=== PATIENT | female | born 1960 | race Caucasian/White ===

== ENCOUNTER → 2017-05-16 15:55 | Outpatient (REF) | payer BC, SELFPAY ==
[2017-05-16 19:11] LABS: Basophils # 0.1 K/mm3 (0-0.2); Basophils % 0.6 % (0.1-2.0); Eosinophils # 0.4 K/mm3 (0.0-0.4); Eosinophils % 5.8 % (0.1-12.0); Hematocrit 36.8 % (37.0-47.0); Hemoglobin 11.3 g/dL (12.2-16.2); Lymphocytes # 2.4 K/mm3 (0.7-4.5); Lymphocytes % 32.1 K/mm3 (10-50); Mean Corpuscular HGB Conc 30.7 g/dL (31.8-35.4); Mean Corpuscular Hemoglobin 27.5 pg (27.0-31.2); Mean Corpuscular Volume 89.8 fl (81-99); Mean Platelet Volume 7.2 fl (7.4-10.4); Monocytes # 0.5 K/mm3 (0.1-1.0); Monocytes % 6.5 % (1.7-9.3); Neutrophils # 4.1 K/mm3 (1.8-7.8); Platelet Count 248 K/mm3 (142-424); Red Cell Distribution Width 15.2 % (11.5-17.5); White Blood Count 7.5 K/mm3 (4.8-10.8)
[2017-05-16 19:39] LABS: Alanine Aminotransferase 14 U/L (12-78); Albumin Level 3.5 gm/dL (3.4-5.0); Albumin/Globulin Ratio 1.1 (1.1-1.8); Alkaline Phosphatase 115 U/L (46-116); Aspartate Amino Transferase 16 U/L (15-37); Bilirubin,Total 0.3 mg/dL (0.2-1.0); Blood Urea Nitrogen 9 mg/dL (7-18); Calcium 8.6 mg/dL (8.5-10.1); Carbon Dioxide 28 mmol/L (21.0-32.0); Chloride 109 mmol/L (98-107); Creatinine,Serum 0.77 mg/dL (0.55-1.02); Estimated Glomerular Filt Rate 77 ml/min (>60); GFR (African American) 93 ML/MIN (>60); Globulin 3.2 gm/dl (1.3-3.2); Glucose 97 mg/dL (74-106); Sodium 146 mmol/L (136-145); T4 (Thyroxine) 5.1 ug/dl (4.7-13.3); Thyroid Stimulating Hormone 1.55 uIU/ml (0.358-3.740); Total Protein,Serum 6.7 gm/dL (6.4-8.2)
[2017-05-19 17:13] LABS: Vitamin D 25 Hydroxy 12.9 ng/mL (30.0-100.0)
== END ==
LOC: LAB 15:55
PROVIDERS: Visit Provider Physician Assistant
DX: G62.9 Polyneuropathy, unspecified (principal); I07.9 Rheumatic tricuspid valve disease, unspecified; M51.16 Intervertebral disc disorders with radiculopathy, lumbar region
CPT/HCPCS: 80053; 82652; 84436; 84443; 85025

== ENCOUNTER → 2017-06-14 16:11 | Outpatient (REF) | payer BC, SELFPAY ==
[2017-06-14 20:07] LABS: Amphetamine/Metha Screen,Urine Negative ng/mL (<1000); Barbiturates Screen,Urine Negative ng/mL (<200); Benzodiazepines Screen,Urine Negative ng/mL (200); Cannabinoid Screen,Urine Negative ng/mL (<50); Cocaine Screen,Urine Negative ng/g (<300); Methadone Screen,Urine Negative ng/mL (<300); Opiate Screen,Urine Negative ng/mL (<300); Phencyclidine Screen,Urine Negative ng/mL (<25)
== END ==
LOC: LAB 16:11
PROVIDERS: Visit Provider Physician Assistant
DX: N39.0 Urinary tract infection, site not specified (principal); Z79.899 Other long term (current) drug therapy
CPT/HCPCS: 80305; 87086; 87088; 87186

== ENCOUNTER → 2017-06-20 09:27 | Outpatient (CLI) | payer BC, SELFPAY ==
--- NOTE | 2017-06-20 09:51 | CA_ITS ---
PROCEDURE: 2-D M-mode and color Doppler study INDICATIONS FOR THE TEST: Chest pain COPD Heart Murmur Tobacco SmokingX Palpitations Fatigue Syncope Edema HypertensionXDiabetes Mellitus Rheumatic Fever SOB DOEXObesityXHyperlipidemia Family History HD Additional History TR TDS SECONARY TO OBESITY PATIENT INFORMATION HEIGHT: 66 WEIGHT:309 GENDER: Female B/P:120/60 2-D/M-MODE INTERPRETATION: 2-D MEASUREMENTS OBSERVED VALUES IN CMS Right Ventricular Dimension (RVDd) 1.6 Interventricular Septum (Thickness)(IVsd) 1.1 Left Ventricular Internal Dimensions(LVIDd) 5.2 Left Ventricular Posterior Wall (Thickness)(LVPWd) 1.2 Aortic Root 3.2 Aortic Cusp Separation 1.5 Left Atrial Dimensions (LAD) 3.0 2D 1. Technically difficult study because of the patient's factor and poor acoustic windows. 2. The left atrium is mildly enlarged, left ventricle is normal size, there is mild concentric left ventricular hypertrophy present, visually estimated ejection fraction 55% with no obvious regional wall motion abnormality. 3. The right atrium and right ventricle are normal size and contractility. 4. The aortic valve is minimally thickened and fibrosed. 5. The mitral and tricuspid valve are structurally normal. 6. No significant pericardial effusion noted. DOPPLER INTERROGATION: Doppler interrogation of the aortic, mitral and tricuspid valvular presence of mild mitral and tricuspid regurgitation, tricuspid and jet velocity insufficient for calculation of the right ventricular systolic pressure, tissue Doppler is indicated of raised left atrial pressure. CONCLUSION: 1. Mildly enlarged left atrium, normal left ventricular size, mild concentric left ventricular hypertrophy, visually estimated ejection fraction of 55% with no obvious regional wall motion abnormality, tissue Doppler is indicated of raised left atrial pressure. 2. Mild mitral and tricuspid regurgitation. 3. No significant pericardial effusion noted.
== END ==
PROVIDERS: Family Provider Family Medicine; PCP Physician Assistant; Visit Provider Physician Assistant
DX: I07.9 Rheumatic tricuspid valve disease, unspecified (principal)
CPT/HCPCS: 93306

== ENCOUNTER → 2017-06-22 14:37 | Outpatient (CLI) | payer BC, SELFPAY ==
[2017-06-22 17:46] LABS: Ferritin 5 ng/mL (8-388)
[2017-06-24 08:22] LABS: Iron 41 ug/dL (27-159); UIBC 352 ug/dL (131-425)
[2017-06-24 19:04] LABS: Iron Saturation 10 % (15-55); Vitamin B12 229 pg/mL (232-1245)
[2017-06-25 08:11] LABS: Hep A Ab, IgM Negative (Negative); Hepatitis B Core Antibody IgM Negative (Negative); Hepatitis B Surface Antigen Negative (Negative)
[2017-06-25 17:09] LABS: Hepatitis C Antibody 0.1 s/co ratio (0.0-0.9)
== END ==
PROVIDERS: PCP Emergency Medicine; Visit Provider Physician Assistant
DX: D64.9 Anemia, unspecified (principal); R53.83 Other fatigue; Z20.5 Contact with and (suspected) exposure to viral hepatitis; Z79.899 Other long term (current) drug therapy
CPT/HCPCS: 36415; 80074; 82607; 82728; 83550

== ENCOUNTER → 2017-07-12 15:53 | Outpatient (REF) | payer BC, SELFPAY | LOC: LAB 15:53 | PROVIDERS: Visit Provider Physician Assistant | DX: R30.9 Painful micturition, unspecified (principal) | CPT/HCPCS: 87086 ==

== ENCOUNTER 2017-08-24 17:00 | Outpatient (RCR) | payer BC, SELFPAY ==
--- NOTE | 2017-07-04 18:14 | HMH.PTOPEV ---
Rehab Outpatient Evaluation Rehab OP Evaluation Start: 07/04/17 17:10 Freq: Status: Active Protocol: Document 07/04/17 18:04 LARRYYASIR (Rec: 07/04/17 18:14 JOSE [id number]) Electronically Signed By Robert Molina PT 07/04/17 18:04 Outpatient Therapy Subjective History Subjective History This is the initial Physical Therapy evaluation for Carmita Lynn. Pt reports to PT for c/o LBP and LLE radiculopathy > RLE radiculopathy. Pt reports lumbago and sciatic pain for 10+ years. PT reports multiple MRI's, X-rays, and NCV/EMG. PT reports significant hx of bulging discs, spinal stenosis, spondylosis, anterolisthesis and nerve damage. Chief Complaint Pain Symptom Type Ache Throb Sharp Dull Stabbing Burning Numbness Tingling Shooting Symptoms Relieved By Rest/Positioning Prescription Meds Symptoms Aggravated By Sitting Standing Physical Activity Twisting Walking Current Functional Limitations Lifting Housework Desk Work/Reading Sleeping Standing Sitting Squatting Recreation Activity Walking Symptom Description Constant but Variable Level of pain today (0-10) 5 Pain scale - at its best (0-10) 3 Pain scale - at its worst (0-10) 9 Lumbopelvic Eval Posture Thoracic Spine Posture Standing Position Increased Kyphosis Lumbar Spine Posture Standing Position Flattened Decreased Lordosis Assistive device Assistive Devices None / NA Gait Observation General Gait Pattern Observation Antalgic Gait Decrease Weight Bear (L) Decrease Stride Lngth (L) Palapation tenderness bilateral thoracic spinal tenderness Yes lumbar spina
== END 2017-08-24 17:01 | disposition home or self-care (01) ==
LOC: PT 17:00
PROVIDERS: Family Provider Family Medicine; PCP Emergency Medicine; Visit Provider Emergency Medicine
DX: M51.16 Intervertebral disc disorders with radiculopathy, lumbar region (principal)
CPT/HCPCS: 97010; 97014; 97110; 97164; G0283

== ENCOUNTER → 2018-01-04 16:46 | Outpatient (REF) | payer BC, SELFPAY ==
[2018-01-04 18:29] LABS: Basophils % 0.7 % (0.1-2.0); Eosinophils # 0.3 K/mm3 (0.0-0.4); Eosinophils % 4.5 % (0.1-12.0); Hematocrit 35.6 % (37.0-47.0); Hemoglobin 11.1 g/dL (12.2-16.2); Lymphocytes % 34.3 K/mm3 (10-50); Mean Corpuscular HGB Conc 31.1 g/dL (31.8-35.4); Mean Corpuscular Hemoglobin 27.7 pg (27.0-31.2); Mean Corpuscular Volume 89.2 fl (81-99); Mean Platelet Volume 6.5 fl (7.4-10.4); Monocytes # 0.4 K/mm3 (0.1-1.0); Neutrophils # 3.1 K/mm3 (1.8-7.8); Neutrophils % 54.4 % (37.0-80.0); Platelet Count 225 K/mm3 (142-424); Red Blood Count 3.99 M/mm3 (4.20-5.40); Red Cell Distribution Width 15.9 % (11.5-17.5); White Blood Count 5.7 K/mm3 (4.8-10.8)
[2018-01-04 19:06] LABS: Alanine Aminotransferase 15 U/L (12-78); Albumin Level 3.2 gm/dL (3.4-5.0); Albumin/Globulin Ratio 0.9 (1.1-1.8); Alkaline Phosphatase 101 U/L (46-116); Anion Gap 10.3 mEq/L (5-15); Aspartate Amino Transferase 18 U/L (15-37); Bilirubin,Total 0.4 mg/dL (0.2-1.0); Blood Urea Nitrogen 6 mg/dL (7-18); Calcium 8.3 mg/dL (8.5-10.1); Carbon Dioxide 28 mmol/L (21.0-32.0); Chloride 106 mmol/L (98-107); Cholesterol 179 mg/dL (140-200); Creatinine,Serum 0.88 mg/dL (0.55-1.02); Estimated Glomerular Filt Rate 66 ml/min (>60); GFR (African American) 80 ML/MIN (>60); Globulin 3.6 gm/dl (1.3-3.2); Glucose 85 mg/dL (74-106); HDL Cholesterol 36 mg/dL (29-89); LDL Cholesterol 107 mg/dL (0-130); Potassium 4.3 mmoL/L (3.5-5.1); Sodium 140 mmol/L (136-145); T4 (Thyroxine) 6.2 ug/dl (4.7-13.3); Thyroid Stimulating Hormone 2.47 uIU/ml (0.358-3.740); Total Protein,Serum 6.8 gm/dL (6.4-8.2); Triglycerides 181 mg/dL (30-200); VLDL Cholesterol 36 mg/dL (0-40)
[2018-01-06 20:26] LABS: Vitamin B12 357 pg/mL (232-1245)
== END ==
LOC: LAB 16:46
PROVIDERS: Visit Provider Physician Assistant
DX: R60.9 Edema, unspecified (principal); M79.605 Pain in left leg; E55.9 Vitamin D deficiency, unspecified
CPT/HCPCS: 80053; 80061; 82607; 82652; 84436; 84443; 85025

== ENCOUNTER → 2018-01-05 15:00 | Outpatient (CLI) | payer BC, SELFPAY ==
--- NOTE | 2018-01-05 15:02 | NVE_ITS ---
Venous Exam Indications: 729.5 Pain in limb. IMPRESSIONS 1. There is no evidence of significant Reflux. 2. No evidence of deep or superficial vein thrombosis involving the left lower extremity 3. Pt is very tender and shieding through out the exam. Very difficult exam. Left lower extremity venous duplex evaluation. Doppler flow study including spectral analysis, color and rodríguez scale imaging. Location: Vascular laboratory. Patient status: Outpatient. Tables: Venous flow and imaging: + +-------+ + Location Overall Flow properties + +-------+ + Left common femoral Patent Normal phasicity; spontaneous; normal augmentation; compressible + +-------+ + Left saphenofemoral junction Patent Compressible + +-------+ + Left profunda femoral Patent Compressible + +-------+ + Left femoral Patent Normal phasicity; spontaneous; normal augmentation; compressible + +-------+ + Left greater saphenous Patent Normal phasicity; spontaneous; normal augmentation; compressible + +-------+ + Left popliteal Patent Normal phasicity; spontaneous; normal augmentation; compressible + +-------+ + Left posterior tibial Patent Compressible + +-------+ + Left peroneal Patent Compressible + +-------+ + Left gastrocnemius Patent Compressible + +-------+ + Left soleal Patent Compressible + +-------+ + (Report amended ) Electronically signed by: Colin Lu [id number]
== END ==
PROVIDERS: Family Provider Family Medicine; PCP Emergency Medicine; Visit Provider Physician Assistant
DX: M79.605 Pain in left leg (principal); R60.9 Edema, unspecified
CPT/HCPCS: 93971

== ENCOUNTER → 2019-11-14 17:56 | Outpatient (CLI) | payer BC, SELFPAY | PROVIDERS: Visit Provider Physician Assistant | DX: N39.0 Urinary tract infection, site not specified (principal) | CPT/HCPCS: 87086; 87088; 87186 ==

== ENCOUNTER → 2019-11-30 12:29 | Outpatient (CLI) | payer BC, SELFPAY ==
--- NOTE | 2019-11-30 12:40 | XR_ITS ---
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 Nothing definitely acute.. The heart is normal in size. Pulmonary vascularity appears mildly increased upper normal but with no pleural effusion.. Nayana and mediastinal structures appear normal. No pneumothorax. Chest wall unremarkable. Mild degenerative changes T-spine 5.4 cm round density with associated subtle postsurgical changes at GE junction region.. Possibly reflects hiatal hernia with hiatal hernia surgery or gastric surgery history.. More extensive surgical clips are seen proximal stomach and GE junction on August 2014 lumbar spine series. IMPRESSION: Lungs clear with no definitive acute cardiopulmonary findings. Would only note upper normal to perhaps borderline increased pulmonary vascularity. Incidental round density region of GE junction with postsurgical changes about this area. Basically stable stable since 2014 lumbar series (Likely reflects hiatal hernia with possible hiatal hernia repair or gastric surgery also involving this region) Dictated by: Colin Lu MD 11/30/2019 14:32 Electronically signed by Colin Lu MD in [place] 11/30/2019 14:32
[2019-11-30 12:44] LABS: Basophils # 0.1 K/mm3 (0-0.2); Basophils % 0.7 % (0.1-2.0); Eosinophils # 0.3 K/mm3 (0.0-0.4); Eosinophils % 3.9 % (0.1-12.0); Hematocrit 37.7 % (37.0-47.0); Hemoglobin 12.4 g/dL (12.2-16.2); Lymphocytes # 1.9 K/mm3 (0.7-4.5); Lymphocytes % 22.3 % (10-50); Mean Corpuscular HGB Conc 32.8 g/dL (31.8-35.4); Mean Corpuscular Hemoglobin 30.4 pg (27.0-31.2); Mean Corpuscular Volume 92.6 fl (81-99); Mean Platelet Volume 6.6 fl (7.4-10.4); Monocytes # 0.5 K/mm3 (0.1-1.0); Monocytes % 5.5 % (1.7-9.3); Neutrophils # 5.6 K/mm3 (1.8-7.8); Neutrophils % 67.6 % (37.0-80.0); Platelet Count 253 K/mm3 (142-424); Red Blood Count 4.07 M/mm3 (4.20-5.40); Red Cell Distribution Width 15.7 % (11.5-17.5); White Blood Count 8.3 K/mm3 (4.8-10.8)
[2019-11-30 15:07] LABS: Alanine Aminotransferase 11 U/L (12-78); Albumin Level 3.8 g/dl (3.5-5.0); Albumin/Globulin Ratio 1.3 (1.1-1.8); Alkaline Phosphatase 94 U/L (38-126); Anion Gap 13.9 mEq/L (5-15); Aspartate Amino Transferase 21 U/L (14-36); Bilirubin,Total 0.7 mg/dl (0.2-1.3); Blood Urea Nitrogen 8 mg/dl (7-17); Calcium 9.3 mg/dl (8.4-10.2); Carbon Dioxide 27 mmol/L (22.0-30.0); Chloride 104 mmol/L (98-107); Chol/HDL Ratio 3.3 (1-3.5); Cholesterol 208 mg/dl (140-200); Estimated Glomerular Filt Rate 86 ml/min (>60); GFR (African American) 104 ML/MIN (>60); Globulin 2.9 g/dL (1.3-3.2); Glucose 98 mg/dl (74-100); HDL Cholesterol 63 mg/dl (40-60); Potassium 3.9 mmoL/L (3.5-5.1); Sodium 141 mmol/L (136-145); Total Protein,Serum 6.7 g/dl (6.3-8.2); Triglycerides 106 mg/dl (30-150); VLDL Cholesterol 21 mg/dL (0-40)
[2019-11-30 15:18] LABS: Direct LDL Cholesterol 129.44 mg/dL (100-129)
[2019-11-30 15:24] LABS: T4 (Thyroxine) 7.4 ug/dl (5.53-11.0)
[2019-11-30 15:38] LABS: Thyroid Stimulating Hormone 1.62 uIU/mL (0.465-4.68)
[2019-12-06 12:29] LABS: 1,25 Dihydroxy Vitamin D 42 pg/mL (.); 1,25-Dihydroxy, Vitamin D-2 <10 pg/mL (.); 1,25-Dihydroxy, Vitamin D-3 34 pg/mL (.)
== END ==
PROVIDERS: Visit Provider Nurse Practitioner Family
DX: R07.9 Chest pain, unspecified (principal); R06.02 Shortness of breath
CPT/HCPCS: 36415; 71046; 80053; 80061; 82652; 84436; 84443; 85025

== ENCOUNTER → 2019-12-11 06:31 | Outpatient (CLI) | payer BC, SELFPAY ==
--- NOTE | 2019-12-11 | CA_ITS ---
APPROVED REPORT Exam: Pharmacologic Technologist: Bobbi Sheldon Ht: 5 ft 5 in Wt: 300 lbs BSA: 2.35 m2 HR: 78 bpm BP: 154/89 mmHg Indications: Chest pain Medical History Medications: Omeprazole,,,,, Furosemide (LASIX),,,,, Gabapentin,,,,, Ropinirole,,,,, Albuterol,,,,, OxYCODONE,,,,, Tizanidine,,,,, SpirOnolactone,,,,, Stress Test Details Test: LEXISCAN HR Resting HR: 80 bpm Max Heart Rate (APMHR): 161 bpm Max HR Achieved: 96 bpm Target HR (85% APMHR): 136 bpm % of APMHR: 59 Recovery HR: 84 bpm BP Resting BP: 154.0/89.0 mmHg Max BP: 154.0/89.0 mmHg Recovery BP: 150.0/82.0 mmHg ECG Clinical Exercise duration: 04:00 min Highest Stage Achieved: Exercise capacity: 1.0 METs Stress ECG Conclusion Resting ECG: Normal sinus rhythm, low voltage QRS, PVC Symptoms: Mild shortness of air and nausea, malaise, headache. No chest pain. Arrhythmias/Ectopy: Occasional isolated PVC. ST-T Changes: No significant changes. Conclusion: Unremarkable Lexiscan stress. Myoview images reported separately. Electronically signed by : Eduardo Cai, 12/11/2019 16:59:54
--- NOTE | 2019-12-11 06:32 | CA_ITS ---
APPROVED REPORT EXAM: Comprehensive 2D, Doppler, and color-flow Echocardiogram Mailroom Supervisor: Sonya Adler RDCS Ht: 5 ft 6 in Wt: 302lbs BSA: 2.38 BP: 143/73 mmHg Indications: CP,ABN EKG,HTN,SMOKER,MORSE TDS MORBID OBESITY 2D Dimensions LVOT 2.12 cm (M/F) 1.5-2.5 M-Mode Dimensions RVDd 2.34 cm (0.9-2.6) LVDd 3.83 cm (3.5-5.7) LVDs 2.91 cm (3.5-5.7) IVSd 0.69 cm (0.6-1.1) PWd 0.81 cm (0.6-1.1) EF (Teich) 48.50% FS 24.00% EDV (Teich) 63.10 mL ESV (Teich) 32.50 mL LV Diastology E/A Ratio 1.14 Mitral Valve MV A Velocity 69.00 (40-130 cm/s) Left Ventricle Technically difficult study because of the patient factors and poor acoustic windows. Left atrium is mildly enlarged, left ventricle is normal size, mild concentric left ventricular hypertrophy, visually estimated ejection fraction 50%, there appears to be mild hypokinesis involving the distal septum and anterior apical wall. Grade 1 diastolic dysfunction seen without tissue Doppler evidence of raise left atrial pressure. Right Ventricle Right atrium and right ventricular normal size and contractility. Aortic Valve Aortic valve is minimally thickened and fibrosed. There is no aortic stenosis or aortic insufficiency. Mitral Valve Mitral valve is grossly normal. Tricuspid Valve Tricuspid valve is grossly normal. Pulmonic Valve Pulmonic valve is poorly visualized. Great Vessels Aortic root is normal size. Pericardium No significant pericardial effusion noted. Conclusion 1. Normal left ventricular size, mild concentric left ventricular hypertrophy, visually estimated ejection fraction 50% with segmental wall motion abnormality described above, the study is technically limited due to patient's factors and poor acoustic windows. Grade 1 diastolic dysfunction seen without tissue Doppler evidence of raise left atrial pressure. 2. Mild mitral and tricuspid regurgitation. 3. No significant pericardial effusion noted. Electronically signed by : Eduardo Cai, 12/12/2019 12:03:40
--- NOTE | 2019-12-11 06:40 | NM_ITS ---
APPROVED REPORT Exam: Nuclear Stress Test Indication: OBESITY, HTN, TOB USE, FM HX, SOB, PALPITATIONS, FATIGUE, ABN EKG Patient Location: Outpatient Stress Tech: Bobbi Sheldon [place] Tech:MEMO Herbert RT (R)(N)(M) Ht: 5 ft 5 in Wt: 300 lbs Bra Size: C HR: 78 bpm BP: 154/89 mmHg BSA: 2.35 m2 BMI: 49.9 History: OBESITY, HTN, TOB USE, FM HX, SOB, PALPITATIONS, FATIGUE, ABN EKG Procedure: Patient received a 0.4 mg of intravenous Lexiscan, resting heart rate 78 bpm, resting blood pressure 154/89 mmHg, with Lexiscan maximum heart rate achived was 87 bpm which is Less than 85 % of the maximum predicted heart rate and blood pressure was 142/81 mmHg. SOB, NAUSEA Electrocardiogram Resting electrocardiogram showed sinus rhythm, with Lexiscan there is less than 1.[address] segment depression noted from the baseline EKG. The EKG portion of the Lexiscan Myoview is nondiagnostic. Cardiac Stress and Resting SPECT Images: Cardiac Stress and Resting SPECT images were obtained using technetium 99m Myoview 31.7 mCi stress and 9.93 mCi at rest. Gated SPECT for analysis of segmental wall motion and calculation of the ejection fraction also done. Cardiac stress and resting SPECT images show a fixed defect involving the inferior, inferior apical and anteroseptal wall raising the concerns for presence of nontransmural myocardial scarring. Computer derived ejection fraction is 44%, with moderate inferior wall hypokinesis. Right ventricle is mildly enlarged with normal contractility. This study is technically limited due to patient's body habitus. Conclusion: 1. The EKG portion of the Lexiscan Myoview is nondiagnostic. 2. Likely nontransmural myocardial scarring involving the inferior and anteroseptal wall, the study is technically limited due to patient's body habitus. Computer derived ejection fraction is 44% with segmental wall motion abnormality as described above. Right ventricle is mildly enlarged with normal contractility. 3. Likely abnormal Lexiscan Myoview study. Electronically signed by : Eduardo Cai, 12/11/2019 17:03:38
== END ==
PROVIDERS: PCP Physician Assistant; Visit Provider Nurse Practitioner Family
DX: R07.9 Chest pain, unspecified (principal)
CPT/HCPCS: 78452; 93017; 93306; A9502; J2785

== ENCOUNTER 2020-01-10 08:39 | Day surgery (SDC) | payer BC, SELFPAY ==
[2020-01-10] VITALS (12 sets, daily range): BP systolic 90–203; BP diastolic 46–100; PULSE 63–92; RESP 16–20; TEMP 36.6; O2SAT 93–100; BMI 50.1
--- NOTE | 2020-01-10 09:00 | IR_ITS ---
APPROVED REPORT Patient Location: Outpatient Institutional Nutrition Consultant: MEMO Ibarra RT (R) PROCEDURES Left heart catheterization Left ventriculogram Selective coronary angiogram INDICATION Abnormal Myoview, Angina pectoris, Informed consent was obtained prior to the procedure. COMPLICATIONS NONE Estimated Blood Loss: LESS THAN 10 ML TECHNIQUE One percent lidocaine used to anesthetize the right anterior aspect of the wrist. The right radial artery was accessed via the Seldinger technique. A 6 [place] sheath was placed in the right radial artery. 2.5 mg of verapamil, 800 mcg of nitroglycerin, 1mg Lidocaine and 5000 U Heparin were given through the arterial sheath. The trap catheter was also used to perform left heart catheterization, left ventriculogram and selective coronary angiogram. At the end of the procedure the sheath was removed good hemostasis was achieved using Traclet band, patient was transferred to the postop holding area in stable condition. ANGIOGRAPHIC RESULTS The left main artery Normal The left anterior descending artery Has proximal concentric 30% stenosis with mild 10% luminal irregularities The circumflex artery Is nondominant with mild mid vessel luminal irregularities The right coronary artery Is dominant with proximal and mid vessel 20 to 30% stenoses The COCHRAN ventriculogram reveals Normal 65% The left ventricular end-diastolic pressure 15 mmHg IMPRESSION Mild [id number] coronary artery disease Normal ejection fraction Mildly elevated LVEDP PLAN 1. Add bisoprolol 10 mg daily for heart rate blood control management 2. Risk factor modification 3. LDL less than 55 Electronically signed by : Isauro Yadav, 01/10/2020 12:22:07
[2020-01-10 09:12] LABS: Basophils # 0.1 K/mm3 (0-0.2); Basophils % 1.1 % (0.1-2.0); Eosinophils # 0.4 K/mm3 (0.0-0.4); Eosinophils % 6.7 % (0.1-12.0); Hematocrit 39.8 % (37.0-47.0); Hemoglobin 12.9 g/dL (12.2-16.2); Lymphocytes % 34.3 % (10-50); Mean Corpuscular HGB Conc 32.4 g/dL (31.8-35.4); Mean Corpuscular Hemoglobin 30.5 pg (27.0-31.2); Mean Corpuscular Volume 94.2 fl (81-99); Mean Platelet Volume 6.9 fl (7.4-10.4); Monocytes # 0.5 K/mm3 (0.1-1.0); Monocytes % 8.1 % (1.7-9.3); Neutrophils # 2.9 K/mm3 (1.8-7.8); Neutrophils % 49.8 % (37.0-80.0); Platelet Count 233 K/mm3 (142-424); Red Blood Count 4.22 M/mm3 (4.20-5.40); Red Cell Distribution Width 15.4 % (11.5-17.5); White Blood Count 5.8 K/mm3 (4.8-10.8)
[2020-01-10 09:13] LABS: Chloride 108 mmol/L (98-107); Potassium 3.9 mmoL/L (3.5-5.1); Sodium 142 mmol/L (136-145)
[2020-01-10 09:16] LABS: Blood Urea Nitrogen 9 mg/dl (7-17); Creatinine Clearance Estimated 78 mL/min (50-200); Estimated Glomerular Filt Rate 86 ml/min (>60); GFR (African American) 104 ML/MIN (>60)
[2020-01-10 09:17] LABS: Anion Gap 10.9 mEq/L (5-15); Calcium 9.5 mg/dl (8.4-10.2); Carbon Dioxide 27 mmol/L (22.0-30.0); Glucose 105 mg/dl (74-100)
[2020-01-10 09:40] LABS: Coronavirus 19 IgG Antibody Negative (Negative); Coronavirus 19 IgM Antibody Negative (Negative)
== END 2020-01-10 14:06 | disposition home or self-care (01) ==
LOC: CATHLAB 08:39
PROVIDERS: PCP Physician Assistant; Visit Provider Internal Medicine
DX: I25.10 Atherosclerotic heart disease of native coronary artery without angina pectoris (principal); I10 Essential (primary) hypertension; R94.30 Abnormal result of cardiovascular function study, unspecified; R94.31 Abnormal electrocardiogram [ECG] [EKG]; Z72.0 Tobacco use
CPT/HCPCS: 80048; 85025; 86328; 93458; 99152; C1725; C1769; J1644; Q9967

== ENCOUNTER 2020-03-12 17:30 | Outpatient (RCR) | payer BC, SELFPAY | END 2020-03-12 18:20 | disposition home or self-care (01) | LOC: PT 17:30 | PROVIDERS: PCP Physician Assistant; Visit Provider Anesthesiology Pain Medicine | DX: M54.5 Low back pain; M79.662 Pain in left lower leg | CPT/HCPCS: 97010; 97014; 97110; 97140; 97163; G0283 ==

== ENCOUNTER 2020-03-21 13:19 | Emergency (ER) | payer BC, SELFPAY ==
[2020-03-21 13:39] VITALS: BP 163/94; PULSE 70; RESP 18; TEMP 36.6; O2SAT 98; BMI 52.8
--- NOTE | 2020-03-21 13:49 | HMH.EDUTC ---
[facility] [place] Clinical Impression: UTI (urinary tract infection) Qualifiers: Urinary tract infection type: site unspecified Hematuria presence: with hematuria Qualified Code(s): N39.0 - Urinary tract infection, site not specified Disposition: Home, Self-Care Condition on Discharge: Good Instructions: Urinary Tract Infection, DI for Urinary Tract Infection (UTI), Amoxicillin and Clavulanic Acid Additional Instructions: *Increase fluids. Water not Soda or Tea *Start antibiotic immediately and be sure to take as ordered for the FULL length of time although you should start to see improvement over the next 48 hours *Pyridium as needed Remember this medication will turn your urine Parker. This is normal but it will stain what ever it gets on *You should not use Pyridium for more than 48 hours. If so , follow up with your primary physician to review urine culture and ensure that antibiotic is adequate for infection *Be SURE to follow up anytime for new or worsening symptoms with your family doctor. AND in 48 hours for urine culture results with your family doctor, if you do not have a doctor then you may call back to the [facility] for urine culture results and further treatment. We do recommend that you choose and establish care with a Primary Care Physician. AND follow up with them in 10-14 days to repeat UA to ensure infection is resolved and blood no longer present *Be sure to let your PCP know that we sent urine cultures from the [facility] so they can follow up to ensure that you area the on the correct antibiotic Call your doctor office and make appointment for 48 hours (2 days from today) to follow up and get the results of your urine culture and further treatment Prescriptions: Amoxicillin/Potassium Clav [Augmentin 500mg tab] 500 mg PO BID 7 Days #14 tab Transmission Status: Received by [facility] predniSONE [Deltasone 10mg tablet] 10 mg PO BID 5 Days #10 tab Transmission Status: Received by [facility] Referrals: Ruthy Harman PA [Primary Care Provider] - As needed Time of Disposition: 14:09 Medical Decision Making - Osmar Inquiry Pt receiving controlled substance: No Osmar was queried for this patient: No Vital Signs: 03/21/20 13:39 Temperature 97.8 F Temperature Source Oral Pulse Rate [Radial] 70 Respiratory Rate 18 Blood Pressure [Right Arm] 163/94 H Blood Pressure Mean [Right Arm] 117 Blood Pressure Source [Right Arm] Automatic Cuff Blood Pressure Position [Right Arm] Sitting 02 Sat by Pulse Oximetry 98 Oxygen Delivery Method Room Air Orders (Tests/Meds): ED MEDICATIONS Discontinued Medications Generic Name Dose Route Start Last Admin Trade Name Bryan PRN Reason Stop Dose Admin Ceftriaxone Sodium 1 gm 03/21/20 14:02 03/21/20 14:09 Ceftriaxone 1gm Vial IM 03/21/20 14:03 1 gm ONCE ONE Administration Protocol Lidocaine HCl 0 ml 03/21/20 14:02 03/21/20 14:09 Lidocaine 1% 5ml Pf Vial IM 03/21/20 14:03 2.1 ml ONCE ONE Administration ORDERS Category Date Time Status Covid-19 Nasal PCR ([facility]) Routine Lab 03/21/20 13:33 Ordered Urine Culture Stat Micro 03/21/20 13:49 Ordered [facility] UTC HPI - General Stated complaint: possible uti Time Seen by Provider: 03/21/20 13:49 Mode of Arrival: Ambulatory Source of Information: Patient Limitations: No Limitations Description of Symptoms (Recalled from Triage Doc. by RN): burning and frequent urination x 2 days HEENT Symptoms (Recalled from RN notes): No Resp Symptoms (Recalled from RN notes): No Skin Symptoms (Recalled from RN notes): No MS Symptoms (Recalled from RN notes): No Functional Status (Recalled from RN notes): wnl - History of Present Illness Provider Complaint: Patient state that she has recurrent UTI States that for the last several days she has been having burning with urination and feeling of urgency and frequency States that today she was still having symptoms so she come in to get checke
[2020-03-21 14:38] VITALS: BP 163/94; PULSE 70; RESP 18; TEMP 36.6; O2SAT 98
[2020-03-21 18:28] LABS: Apearance,Urine Clear (Clear); Color,Urine Yellow (Yellow); PH,Urine 5.5 (5.0-8.5); Protein,Urine Negative (Negative); Specific Gravity, Urine 1.025 (1.005-1.030)
[2020-03-21 18:29] LABS: Bilirubin,Urine Negative (Negative); Blood, Urine 1+ (Negative); Glucose,Urine (UA) Negative (Negative); Ketones,Urine Negative (Negative); UTC Leukocyte Esterase,Urine 3+ (Negative); UTC Nitrate,Urine Positive (Negative); Urobilinogen,Urine 0.2 EU/dl (0.2)
== END 2020-03-21 14:38 | disposition home or self-care (01) ==
PROVIDERS: Emergency Provider Nurse Practitioner; PCP Physician Assistant
DX: N30.00 Acute cystitis without hematuria (principal); B96.20 Unspecified Escherichia coli [E. coli] as the cause of diseases classified elsewhere; I10 Essential (primary) hypertension; I25.10 Atherosclerotic heart disease of native coronary artery without angina pectoris; F17.210 Nicotine dependence, cigarettes, uncomplicated; Z90.49 Acquired absence of other specified parts of digestive tract; Z79.899 Other long term (current) drug therapy
CPT/HCPCS: 81003; 87086; 87088; 87186; 96372; 99202

== ENCOUNTER → 2020-04-09 16:07 | Outpatient (CLI) | payer BC, SELFPAY ==
--- NOTE | 2020-04-09 16:15 | MR_ITS ---
PROCEDURE: MR LUMBAR SPINE WO CON CLINICAL INDICATION: RADICULOPATHY LT SIDED LBP WITH LT HIP PAIN. PAIN RADIATES DOWN ANTERIOR SURFACE OF LEG. TINGLING BILATERAL FEET. BURNING IN BIG TOE OF LT FOOT. COMPARISON: MR PHYSICS FACULTY MEMBER/O MRI-L-SPINE W/O from 03/19/2015 MR KNOT SAW OPERATOR/O MRI-C-SPINE W/O from 04/14/2016 TECHNIQUE: Standard multiplanar multiecho sequences are performed without contrast. 3-D MIP and myelographic images are also rendered and reviewed FINDINGS: There is normal alignment. T10-T11 and T11-T12 shows mild degenerative disc disease. T12-L1: Degenerate disc disease with mild bulging disc and minimal left paracentral disc protrusion without impingement. L1-L2: Degenerative disc disease with mild bulging disc the degenerative disc disease is somewhat worse with some irregularity of the endplates in decrease in the disc space. The sagittal images suggest a tiny right paracentral disc protrusion without impingement. L2-L3: Degenerative disc disease with 3 mm retrolisthesis of L2 with bulging disc and a small left paracentral disc protrusion abutting upon the left L3 nerve root. This is not present previously. There is left lateral recess narrowing and mild bilateral foraminal narrowing L3-L4: Degenerative disc disease with bulging disc with facet and ligamentum hypertrophy with moderate bilateral lateral recess and foraminal narrowing right greater than left. There is transverse narrowing of the canal at this level. The bulging disc is somewhat less apparent than when compared to the previous exam. L4-5: Degenerative disc disease with bulging disc along facet and ligamentum hypertrophy. There is anterolisthesis of L4 by 6 mm previously noted extruded disc is no longer apparent. There is bulging disc along with facet and ligamentum hypertrophy right greater than left causing transverse narrowing of the canal along with severe right lateral recess narrowing and moderate to severe right foraminal narrowing and mild left foraminal narrowing. Type 1 endplate changes noted at this level. L5-S1: Degenerative disc disease with 4 mm anterolisthesis of L5 on S1 with bulging disc with moderate to severe left-sided foraminal narrowing. IMPRESSION: Abnormal MRI of the lumbar spine with multilevel lumbar spondylosis with degenerative disc disease, bulging disc, facet ligamentum hypertrophy with lateral recess and foraminal narrowing. Please see above for detailed description at each level. Dictated by: Akash Gutierrez MD 04/11/2020 21:50 Akash Gutierrez MD in [place] 04/11/2020 21:50
--- NOTE | 2020-04-09 17:40 | XR_ITS ---
PROCEDURE: XR HIP LT 2-3V W/PELVIS CLINICAL INDICATION: LEFT HIP PAIN COMPARISON: No exams were available for comparison FINDINGS: There are severe osteoarthritic changes of the left hip with loss of joint space, osteosclerosis, and osteophyte formation at the acetabulum and at the femoral head. There are some subchondral cystic changes at the femoral head inferiorly. Osteitis pubis is present. There is also sclerosis of the SI joint on the left inferiorly with osteoarthritic changes of the right SI joint. There are mild osteoarthritic changes of the right hip is well. Surgical clips are present in the lower pelvic region. There are degenerative changes of the lumbar spine as well. IMPRESSION: Severe osteoarthritis of the left hip with other osteoarthritic/degenerative changes as described above. Dictated by: Akash Gutierrez MD 04/09/2020 18:38 Akash Gutierrez MD in [place] 04/09/2020 18:38
== END ==
PROVIDERS: PCP Physician Assistant; Visit Provider Anesthesiology Pain Medicine
DX: M54.16 Radiculopathy, lumbar region (principal); M25.552 Pain in left hip
CPT/HCPCS: 72148; 73502; 76376

== ENCOUNTER → 2020-05-26 15:58 | Outpatient (CLI) | payer BC, SELFPAY ==
[2020-05-26 17:11] LABS: Chloride 105 mmol/L (98-107); Sodium 140 mmol/L (136-145)
[2020-05-26 17:12] LABS: Potassium 4.3 mmoL/L (3.5-5.1)
[2020-05-26 17:15] LABS: Anion Gap 9.3 mEq/L (5-15); Blood Urea Nitrogen 7 mg/dl (7-17); Calcium 9.4 mg/dl (8.4-10.2); Carbon Dioxide 30 mmol/L (22.0-30.0); Estimated Glomerular Filt Rate 85 ml/min (>60); GFR (African American) 103 ML/MIN (>60); Glucose 80 mg/dl (74-100)
[2020-05-26 17:24] LABS: NT Pro Brain Natriuretic Pep. 531 pg/mL (0-125)
== END ==
PROVIDERS: Internal Medicine Cardiovascular Disease; Visit Provider Urology
DX: R60.0 Localized edema (principal); R94.31 Abnormal electrocardiogram [ECG] [EKG]; I10 Essential (primary) hypertension; Z72.0 Tobacco use
CPT/HCPCS: 36415; 80048; 83880

== ENCOUNTER → 2020-08-13 17:22 | Outpatient (CLI) | payer BC, SELFPAY ==
[2020-08-13 17:56] LABS: Basophils # 0.1 K/mm3 (0-0.2); Basophils % 1.2 % (0.1-2.0); Eosinophils # 0.4 K/mm3 (0.0-0.4); Eosinophils % 6.7 % (0.1-12.0); Hematocrit 38.9 % (37.0-47.0); Hemoglobin 12.2 g/dL (12.2-16.2); Lymphocytes # 2.3 K/mm3 (0.7-4.5); Lymphocytes % 38.8 % (10-50); Mean Corpuscular HGB Conc 31.4 g/dL (31.8-35.4); Mean Corpuscular Volume 98.8 fl (81-99); Mean Platelet Volume 7.4 fl (7.4-10.4); Monocytes # 0.4 K/mm3 (0.1-1.0); Monocytes % 6.6 % (1.7-9.3); Neutrophils # 2.7 K/mm3 (1.8-7.8); Neutrophils % 46.8 % (37.0-80.0); Platelet Count 223 K/mm3 (142-424); Red Blood Count 3.94 M/mm3 (4.20-5.40); White Blood Count 5.8 K/mm3 (4.8-10.8)
[2020-08-13 18:33] LABS: Alanine Aminotransferase 8 U/L (12-78); Albumin Level 3.8 g/dl (3.5-5.0); Albumin/Globulin Ratio 1.4 (1.1-1.8); Alkaline Phosphatase 88 U/L (38-126); Aspartate Amino Transferase 22 U/L (14-36); Bilirubin,Total 0.3 mg/dl (0.2-1.3); Blood Urea Nitrogen 7 mg/dl (7-17); Carbon Dioxide 27 mmol/L (22.0-30.0); Chloride 108 mmol/L (98-107); Chol/HDL Ratio 3.6 (1-3.5); Cholesterol 159 mg/dl (140-200); Estimated Glomerular Filt Rate 85 ml/min (>60); GFR (African American) 103 ML/MIN (>60); Globulin 2.7 g/dL (1.3-3.2); Glucose 99 mg/dl (74-100); HDL Cholesterol 44 mg/dl (40-60); Sodium 142 mmol/L (136-145); Total Protein,Serum 6.5 g/dl (6.3-8.2); Triglycerides 110 mg/dl (30-150); VLDL Cholesterol 22 mg/dL (0-40)
[2020-08-13 18:44] LABS: Direct LDL Cholesterol 96.17 mg/dL (100-129)
[2020-08-13 18:51] LABS: 25-OH Vitamin D, Total 14.7 ng/mL (30-100); T4 (Thyroxine) 6.2 ug/dl (5.53-11.0)
[2020-08-13 19:04] LABS: Thyroid Stimulating Hormone 2.42 uIU/mL (0.465-4.68)
== END ==
PROVIDERS: Visit Provider Nurse Practitioner Family
DX: Z00.00 Encounter for general adult medical examination without abnormal findings (principal); I25.10 Atherosclerotic heart disease of native coronary artery without angina pectoris; I10 Essential (primary) hypertension; E78.5 Hyperlipidemia, unspecified; E55.9 Vitamin D deficiency, unspecified
CPT/HCPCS: 80053; 80061; 82306; 84436; 84443; 85025

== ENCOUNTER 2020-11-03 17:04 | Emergency (ER) | payer BC, SELFPAY ==
[2020-11-03 17:10] VITALS: BP 181/82; PULSE 56; RESP 16; TEMP 36.7; O2SAT 97; BMI 45.7
--- NOTE | 2020-11-03 18:09 | HMH.EDUTC ---
[facility] – [place], [place] Disposition Clinical Impression: UTI (urinary tract infection) Qualifiers: Urinary tract infection type: site unspecified Hematuria presence: with hematuria Qualified Code(s): N39.0 - Urinary tract infection, site not specified Disposition: Home, Self-Care Condition on Discharge: Good Instructions: Urinary Tract Infection, DI for Urinary Tract Infection (UTI) Additional Instructions: Drink plenty of fluids. Take tylenol or ibuprofen for pain or fever. Take the medications as directed. Follow up with your regular doctor. GO TO THE ER FOR ANY WORSENING SYMPTOMS The pyridium will make your urine turn orange, this is an expected side effect. It will stain your clothes if it comes into contact with them. Prescriptions: Ondansetron [Zofran 4mg ODT] 4 mg PO Q8HP PRN #12 tab.rapdis PRN Reason: Nausea Transmission Status: Received by [facility] #[id number] Sulfamethoxazole/Trimethoprim [Bactrim DS tablet] 1 each PO BID 7 Days #14 tab Transmission Status: Received by [facility] #[id number] Phenazopyridine HCl [Pyridium 200mg Tablet] 200 pow PO TID #6 tab Transmission Status: Received by [facility] #[id number] Referrals: Ruthy Harman PA [Primary Care Provider] - Forms: Work/School Release Time of Disposition: 18:13 Medical Decision Making - Medical Records Medical records reviewed: No: I reviewed the patient's medical records. - Osmar Inquiry Pt receiving controlled substance: No Vital Signs: 11/03/20 17:10 11/03/20 18:14 Temperature 98.0 F 98.0 F Temperature Source Oral Pulse Rate 56 L Pulse Rate [Right Brachial] 56 L Respiratory Rate 16 16 Blood Pressure 181/82 H Blood Pressure [Right Arm] 181/82 H Blood Pressure Mean [Right Arm] 115 Blood Pressure Source [Right Arm] Automatic Cuff Blood Pressure Position [Right Arm] Sitting 02 Sat by Pulse Oximetry 97 Oxygen Delivery Method Room Air - Lab Data Lab results reviewed: Yes: I reviewed the patient's lab results. Orders (Tests/Meds): ORDERS Category Date Time Status Urine Culture Stat Micro 11/03/20 17:40 Received [facility] – [place], [place] HPI - General Stated complaint: Possible UTI Time Seen by Provider: 11/03/20 18:09 - History of Present Illness Provider Complaint: She states that she has had low back pain and burning with urination since yesterday. She always has back pain, but it has worsened slightly more than normal. She has saw blood in her urine also. She does get UTI at times. - Related Data Home Medications Medication Instructions Recorded Confirmed gabapentin 300 mg capsule 600 mg PO TID #180 cap 04/18/19 08/13/20 omeprazole 20 mg capsule,delayed 20 mg PO BID 12/06/19 08/13/20 release tizanidine 4 mg tablet 4 mg PO BID PRN #60 tab 12/06/19 08/13/20 hydrocodone 10 mg-acetaminophen 1 tab PO QHS PRN 12/26/19 08/13/20 325 mg tablet ropinirole 2 mg tablet,extended 2 mg PO QHS PRN tab 12/26/19 08/13/20 release 24 hr Previous Rx's Medication Instructions Recorded albuterol sulfate 90 mcg/actuation 2 puff INHALATION Q4-6H #18 g 01/17/20 aerosol inhaler aspirin 81 mg tablet,delayed 81 mg PO DAILY #30 tab 01/20/20 release atorvastatin 40 mg tablet 40 mg PO DAILY #90 tab 04/27/20 bisoprolol fumarate 10 mg tablet 10 mg PO DAILY #90 tab 04/27/20 prednisone 20 mg tablet 20 mg PO BID #10 tab 08/19/20 ergocalciferol (vitamin D2) 1,250 50,000 unit PO QWEEK #12 cap 08/22/20 mcg (50,000 unit) capsule furosemide 20 mg tablet See Rx Instructions .ROUTE 10/19/20 .COMPLEX #60 tab spironolactone 25 mg tablet See Rx Instructions .ROUTE 10/19/20 .COMPLEX #60 tab Ondansetron [Zofran 4mg ODT] 4 mg PO Q8HP PRN #12 tab.rapdis 11/03/20 Phenazopyridine HCl [Pyridium 200 pow PO TID #6 tab 11/03/20 200mg Tablet] Sulfamethoxazole/Trimethoprim 1 each PO BID 7 Days #14 tab 11/03/20 [Bactrim DS tablet] Allergies Allergy/AdvReac Type Severity Reaction Status Date
[2020-11-03 18:14] VITALS: BP 181/82; PULSE 56; RESP 16; TEMP 36.7; O2SAT 97
[2020-11-04 14:04] LABS: Apearance,Urine Cloudy (Clear); Bilirubin,Urine 1+ (Negative); Blood, Urine 3+ (Negative); Color,Urine Dark Yellow (Yellow); Glucose,Urine (UA) Negative (Negative); Ketones,Urine Negative (Negative); PH,Urine 5.5 (5.0-8.5); Protein,Urine 2+ (Negative); Specific Gravity, Urine >= 1.030 (1.005-1.030)
[2020-11-04 14:05] LABS: UTC Leukocyte Esterase,Urine Trace (Negative); UTC Nitrate,Urine Positive (Negative); Urobilinogen,Urine 0.2 EU/dl (0.2)
== END 2020-11-03 18:22 | disposition home or self-care (01) ==
PROVIDERS: Emergency Provider Nurse Practitioner Family; PCP Physician Assistant
DX: N30.00 Acute cystitis without hematuria (principal); I25.10 Atherosclerotic heart disease of native coronary artery without angina pectoris; I10 Essential (primary) hypertension; F17.210 Nicotine dependence, cigarettes, uncomplicated
CPT/HCPCS: 81003; 87086; 87088; 87186; 99202; G0463

== ENCOUNTER → 2021-07-08 11:29 | Outpatient (CLI) | payer BC, SELFPAY ==
[2021-07-08 11:42] LABS: Microscopic, Urine URINE MICROSCOPIC (MICROSCOPIC)
--- NOTE | 2021-07-08 12:04 | XR_ITS ---
FINAL REPORT CLINICAL HISTORY: pre op, smoker COMPARISON: November 30, 2019 FINDINGS: Two views of the chest were obtained. The heart size and pulmonary vascularity are within normal limits. The mediastinum is normal. No acute pulmonary abnormality is identified. There is no pneumothorax. The bony thorax is intact. There is a small hiatal hernia. IMPRESSION: No active cardiopulmonary disease. Small hiatal hernia. Reviewed, Interpreted and Dictated by Bijan Davis III, MD Transcribed by LUIS Miranda Authenticated by Bijan Davis III, MD on 07/08/2021 01:07:27 PM [facility]
[2021-07-08 12:09] LABS: Basophils # 0.1 K/mm3 (0-0.2); Basophils % 1.3 % (0.1-2.0); Eosinophils # 0.2 K/mm3 (0.0-0.4); Eosinophils % 3.9 % (0.1-12.0); Hematocrit 43.3 % (37.0-47.0); Hemoglobin 13.3 g/dL (12.2-16.2); Lymphocytes # 1.4 K/mm3 (0.7-4.5); Lymphocytes % 24.3 % (10-50); Mean Corpuscular HGB Conc 30.8 g/dL (31.8-35.4); Mean Corpuscular Hemoglobin 32.3 pg (27.0-31.2); Mean Corpuscular Volume 104.9 fl (81-99); Mean Platelet Volume 7.7 fl (7.4-10.4); Monocytes # 0.3 K/mm3 (0.1-1.0); Monocytes % 5.6 % (1.7-9.3); Neutrophils # 3.6 K/mm3 (1.8-7.8); Platelet Count 217 K/mm3 (142-424); Red Blood Count 4.13 M/mm3 (4.20-5.40); Red Cell Distribution Width 13.8 % (11.5-17.5); White Blood Count 5.5 K/mm3 (4.8-10.8)
[2021-07-08 12:41] LABS: Appearance,Urine CLEAR (Clear); Bilirubin,Urine Negative (Negative); Blood, Urine 1+ (Negative); Color,Urine YELLOW (Yellow); Glucose,Urine (UA) Negative (Negative); Hemoglobin A1C 5.2 % (4.0-6.0); Ketones,Urine Negative (Negative); Leukocyte Esterase,Urine 1+ (Negative); Nitrate,Urine POSITIVE (Negative); PH,Urine 7.5 (5.0-8.5); Protein,Urine Negative (Negative)
[2021-07-08 12:55] LABS: Bacteria,Urine 3+ /lpf; Sperm,Urine 2+ /lpf; Squamous Epithelial Cell,Urine Occasional #/hpf (0-5)
[2021-07-08 14:14] LABS: Prothrombin Time 11.3 seconds (10.1-12.5)
[2021-07-08 14:59] LABS: Alanine Aminotransferase 12 U/L (12-78); Albumin Level 3.6 g/dl (3.5-5.0); Albumin/Globulin Ratio 1.3 (1.1-1.8); Alkaline Phosphatase 89 U/L (38-126); Anion Gap 7.9 mEq/L (5-15); Aspartate Amino Transferase 22 U/L (14-36); Bilirubin,Total 0.8 mg/dl (0.2-1.3); Blood Urea Nitrogen 5 mg/dl (7-17); Calcium 8.4 mg/dl (8.4-10.2); Carbon Dioxide 27 mmol/L (22.0-30.0); Chloride 107 mmol/L (98-107); Chol/HDL Ratio 4.1 (1-3.5); Cholesterol 154 mg/dl (140-200); Estimated Glomerular Filt Rate 85 ml/min (>60); GFR (African American) 103 ML/MIN (>60); Globulin 2.7 g/dL (1.3-3.2); Glucose 100 mg/dl (74-100); HDL Cholesterol 38 mg/dl (40-60); Potassium 3.9 mmoL/L (3.5-5.1); Sodium 138 mmol/L (136-145); Total Protein,Serum 6.3 g/dl (6.3-8.2); Triglycerides 99 mg/dl (30-150); VLDL Cholesterol 20 mg/dL (0-40)
[2021-07-08 15:10] LABS: Direct LDL Cholesterol 95.02 mg/dL (100-129)
[2021-07-08 15:27] LABS: Thyroid Stimulating Hormone 1.25 uIU/mL (0.465-4.68)
[2021-07-08 18:28] LABS: 25-OH Vitamin D, Total < 12.8 ng/mL (30-100)
== END ==
PROVIDERS: PCP Physician Assistant; Visit Provider Physician Assistant
DX: Z01.818 Encounter for other preprocedural examination (principal); M25.552 Pain in left hip; I10 Essential (primary) hypertension; E55.9 Vitamin D deficiency, unspecified; F17.200 Nicotine dependence, unspecified, uncomplicated
CPT/HCPCS: 36415; 71046; 80053; 80061; 81001; 82306; 83036; 84443; 85025; 85610; 87086; 87088; 87186

== ENCOUNTER → 2021-12-30 11:48 | Outpatient (CLI) | payer BC, SELFPAY ==
[2021-12-30 12:38] LABS: Basophils # 0.1 K/mm3 (0-0.2); Basophils % 0.9 % (0.1-2.0); Eosinophils # 0.3 K/mm3 (0.0-0.4); Eosinophils % 5.2 % (0.1-12.0); Hematocrit 44.2 % (37.0-47.0); Hemoglobin 13.1 g/dL (12.2-16.2); Lymphocytes # 1.7 K/mm3 (0.7-4.5); Lymphocytes % 32.6 % (10-50); Mean Corpuscular HGB Conc 29.7 g/dL (31.8-35.4); Mean Corpuscular Hemoglobin 30.9 pg (27.0-31.2); Mean Corpuscular Volume 104.3 fl (81-99); Mean Platelet Volume 7.2 fl (7.4-10.4); Monocytes # 0.4 K/mm3 (0.1-1.0); Monocytes % 6.7 % (1.7-9.3); Neutrophils # 2.9 K/mm3 (1.8-7.8); Neutrophils % 54.7 % (37.0-80.0); Platelet Count 240 K/mm3 (142-424); Red Blood Count 4.24 M/mm3 (4.20-5.40); Red Cell Distribution Width 14.5 % (11.5-17.5); White Blood Count 5.3 K/mm3 (4.8-10.8)
[2021-12-30 13:12] LABS: Alanine Aminotransferase 11 U/L (12-78); Albumin Level 3.6 g/dl (3.5-5.0); Alkaline Phosphatase 115 U/L (38-126); Anion Gap 8.2 mEq/L (5-15); Aspartate Amino Transferase 23 U/L (14-36); Bilirubin,Direct 0.1 mg/dl (0.0-0.4); Bilirubin,Indirect 0.2 mg/dL (0.0-0.9); Bilirubin,Total 0.3 mg/dl (0.2-1.3); Bilirubin,Unconjugated 0.2 mg/dL (0.0-1.1); Blood Urea Nitrogen 4 mg/dl (7-17); Calcium 9.2 mg/dl (8.4-10.2); Carbon Dioxide 29 mmol/L (22.0-30.0); Chloride 107 mmol/L (98-107); Estimated Glomerular Filt Rate 85 ml/min (>60); GFR (African American) 103 ML/MIN (>60); Glucose 99 mg/dl (74-100); HDL Cholesterol 45 mg/dl (40-60); Magnesium 1.7 mg/dl (1.6-2.3); Potassium 4.2 mmoL/L (3.5-5.1); Sodium 140 mmol/L (136-145); Total Protein,Serum 6.6 g/dl (6.3-8.2)
[2021-12-30 13:18] LABS: Chol/HDL Ratio 3.8 (1-3.5); Cholesterol 169 mg/dl (140-200); Triglycerides 102 mg/dl (30-150); VLDL Cholesterol 20 mg/dL (0-40)
[2021-12-30 13:44] LABS: Thyroid Stimulating Hormone 1.37 uIU/mL (0.465-4.68)
[2022-01-06 08:55] LABS: Direct LDL Cholesterol 98 mg/dL (100-129)
== END ==
PROVIDERS: PCP Physician Assistant; Visit Provider Nurse Practitioner
DX: I25.10 Atherosclerotic heart disease of native coronary artery without angina pectoris (principal); E78.2 Mixed hyperlipidemia; I10 Essential (primary) hypertension
CPT/HCPCS: 36415; 80048; 80061; 80076; 83735; 84439; 84443; 85025

== ENCOUNTER 2022-01-14 17:00 | Outpatient (RCR) | payer BC, SELFPAY | END 2022-01-14 17:05 | disposition home or self-care (01) | LOC: PT 17:00 | PROVIDERS: Visit Provider Orthopaedic Surgery Adult Reconstructive Orthopaedic Surgery | DX: M16.12 Unilateral primary osteoarthritis, left hip (principal); Z96.642 Presence of left artificial hip joint | CPT/HCPCS: 97010; 97110; 97112; 97140; 97163; 97164 ==

== ENCOUNTER 2023-09-25 11:33 | Outpatient (CLI) | payer BC, SELFPAY ==
[2023-09-25 12:02] LABS: Basophils # 0.1 K/mm3 (0-0.2); Basophils % 1.9 % (0.1-2.0); Eosinophils # 0.3 K/mm3 (0.0-0.4); Hematocrit 41.7 % (37.0-47.0); Hemoglobin 12.9 g/dL (12.2-16.2); Lymphocytes # 1.8 K/mm3 (0.7-4.5); Lymphocytes % 37.1 % (10-50); Mean Corpuscular Hemoglobin 32.8 pg (27.0-31.2); Mean Corpuscular Volume 105.9 fl (81-99); Mean Platelet Volume 7.3 fl (7.4-10.4); Monocytes # 0.3 K/mm3 (0.1-1.0); Monocytes % 6.7 % (1.7-9.3); Neutrophils # 2.4 K/mm3 (1.8-7.8); Neutrophils % 48.3 % (37.0-80.0); Platelet Count 187 K/mm3 (142-424); Red Blood Count 3.94 M/mm3 (4.20-5.40); Red Cell Distribution Width 14.4 % (11.5-17.5); White Blood Count 4.9 K/mm3 (4.8-10.8)
[2023-09-25 12:50] LABS: Chloride 106 mmol/L (98-107)
[2023-09-25 12:51] LABS: Potassium 4.4 mmoL/L (3.5-5.1); Sodium 138 mmol/L (136-145)
[2023-09-25 12:53] LABS: Alanine Aminotransferase 14 U/L (12-78); Albumin Level 3.8 g/dl (3.5-5.0); Alkaline Phosphatase 88 U/L (38-126); Anion Gap 10.4 mEq/L (5-15); Aspartate Amino Transferase 29 U/L (14-36); Bilirubin,Direct 0.2 mg/dl (0.0-0.4); Bilirubin,Indirect 0.5 mg/dL (0.0-0.9); Bilirubin,Total 0.7 mg/dl (0.2-1.3); Bilirubin,Unconjugated 0.5 mg/dL (0.0-1.1); Blood Urea Nitrogen 11 mg/dl (7-17); Calcium 9.1 mg/dl (8.4-10.2); Carbon Dioxide 26 mmol/L (22.0-30.0); Cholesterol 154 mg/dl (140-200); Estimated Glomerular Filt Rate 72 ml/min (>60); GFR (African American) 88 ML/MIN (>60); Glucose 90 mg/dl (74-100); Triglycerides 107 mg/dl (30-150); VLDL Cholesterol 21 mg/dL (0-40)
[2023-09-25 12:54] LABS: Chol/HDL Ratio 3.7 (1-3.5); HDL Cholesterol 42 mg/dl (40-60); Magnesium 1.8 mg/dl (1.6-2.3); Total Protein,Serum 6.6 g/dl (6.3-8.2)
[2023-09-25 13:05] LABS: Direct LDL Cholesterol 91.57 mg/dL (100-129)
[2023-09-25 13:10] LABS: Free T4 (Free Thyroxine) 0.88 ng/dl (0.78-2.19)
[2023-09-25 13:25] LABS: Thyroid Stimulating Hormone 4.33 uIU/mL (0.465-4.68)
== END 2023-09-25 23:59 | disposition home or self-care (01) ==
LOC: LAB 11:33
PROVIDERS: PCP Physician Assistant; Visit Provider Physician Assistant
DX: I11.9 Hypertensive heart disease without heart failure; I25.10 Atherosclerotic heart disease of native coronary artery without angina pectoris; R94.31 Abnormal electrocardiogram [ECG] [EKG]; R06.02 Shortness of breath; E78.2 Mixed hyperlipidemia; F17.210 Nicotine dependence, cigarettes, uncomplicated
CPT/HCPCS: 36415; 80048; 80061; 80076; 83735; 84439; 84443; 85025

== ENCOUNTER 2023-10-09 14:08 | Outpatient (CLI) | payer BC, SELFPAY ==
--- NOTE | 2023-10-09 14:10 | CA_ITS ---
APPROVED REPORT EXAM: Comprehensive 2D, Doppler, and color-flow Echocardiogram Desktop Support Manager: Kellie Mejia RVT Ht: 5 ft 5 in Wt: 314lbs BSA: 2.40 BP: 167/91 mmHg Indications: SOA,ABN EKG,CAD,RBBB,CARDIOMEGALY,SMOKER,HTN,HLD VERY TDS-BEST EXAM POSSIBLE LIMITED WINDOWS R/T BODY HABITUS 2D Dimensions IVSd 0.98 cm F: 0.6-1.0 LVEF (Visual) 49.10 % PWd 0.75 cm F: 0.6 - 1.0 LVDd 4.53 cm F: 3.9 - 5.3 LVDs 3.41 cm F: 2.2 - 3.5 M-Mode Dimensions LA Diam 2.78 cm (1.9-4.0) TAPSE 2.09 (<1.7) LV Diastology E Decel Time 150 (160-240 msec) E/A Ratio 0.4 Aortic Valve KAMI Index 1.29 cm2/m2 AoV Peak Jem. 138.0 (50-130 cm/s) AO Peak GR. 7.70 mmHg AO Mean GR. 4.80 (<5 mmHg) AO VTI 25.5 (18-25 cm) KAMI (VTI) 3.15 (2.5-4.5 cm2) Mitral Valve MV E Max Jem. 28.0 (40-130 cm/s) MV A Velocity 67.0 (40-130 cm/s) E/A Ratio 0.41 MV PHT 44.0 ms Tricuspid Valve TR P. Velocity 167.00 cm/s RAP Estimate 10.00 mmHg RVSP 21.20 mmHg Left Ventricle The left ventricle is normal size. The left ventricular systolic function is low normal. There is increased LV wall thickness. The septum is asynchronous. There is moderate hypokinesis of the septal LV wall. Transmitral Doppler flow pattern suggests impaired LV relaxation. LVEF is 50%. Right Ventricle The right ventricle is normal size. The right ventricular systolic function is normal. Atria The left atrium is mildly dilated. The right atrium size is normal. Lipomatus atrial septal hypertrophy is present. There is no Doppler evidence of interatrial shunt. Aortic Valve The aortic valve is mildly thickened. There is no aortic valvular stenosis. Trace aortic regurgitation. Mitral Valve The mitral valve leaflets are mildly thickened. Trace mitral regurgitation. No evidence of mitral valve stenosis. Tricuspid Valve The tricuspid valve leaflets are thin and pliable. Trace tricuspid regurgitation. There is insufficient TR jet to estimate RVSP. Pulmonic Valve The pulmonary valve is normal in structure. Trace pulmonic regurgitation. Great Vessels The aortic root is normal in size. The ascending aorta is not well-visualized. IVC is normal in size and collapses >50% with inspiration. Pericardium There is no pericardial effusion. Other Information Study Quality: Fair Conclusion Low normal LV systolic function (LVEF 50%). Normal RV size and function. Mild LA dilation. No significant valvular stenosis or regurgitation. Lipomatous hypertrophy of the interatrial septum. Electronically signed by : Jaylyn Roy MD 10/14/2023 00:45:28
== END 2023-10-09 23:59 | disposition home or self-care (01) ==
LOC: RT 14:10
PROVIDERS: PCP Physician Assistant; Visit Provider Physician Assistant
DX: I11.9 Hypertensive heart disease without heart failure (principal); I25.10 Atherosclerotic heart disease of native coronary artery without angina pectoris; R94.31 Abnormal electrocardiogram [ECG] [EKG]; R06.02 Shortness of breath; E78.2 Mixed hyperlipidemia; F17.210 Nicotine dependence, cigarettes, uncomplicated
CPT/HCPCS: 93306

== ENCOUNTER 2024-04-02 11:33 | Emergency (ER) | payer BC, SELFPAY ==
[2024-04-02 11:53] VITALS: BP 127/75; PULSE 68; RESP 20; TEMP 36.7; O2SAT 93; BMI 48.9
[2024-04-02 12:02] VITALS: PULSE 63; O2SAT 97
--- NOTE | 2024-04-02 12:08 | EXP.UTC ---
Discharge Plan Disposition Patient Disposition: Home, Self-Care Condition: Good Prescriptions Prescriptions: New benzonatate 100 mg capsule 100 mg PO TID PRN (Reason: cough) Qty: 30 0RF amoxicillin-pot clavulanate 875-125 mg Tablet 1 tab PO Q12H Qty: 20 0RF guaifenesin [Mucinex] 600 mg tablet extended release 12hr 1,200 mg PO BID PRN (Reason: cough) Qty: 20 0RF azithromycin [Zithromax Z-Ras] 250 mg tablet See Rx Instructions .ROUTE .COMPLEX 5 Days Qty: 6 0RF Rx Instructions: For 250 mg dose pack: take 500 mg today (day 1), then 250 mg for 4 days (days 2-5) prednisone 20 mg tablet 20 mg PO BID 5 Days Qty: 10 0RF No Action gabapentin 300 mg capsule 600 mg PO TID Qty: 180 tizanidine 4 mg tablet 4 mg PO BID PRN (Reason: pain) Qty: 60 oxycodone-acetaminophen 7.5-325 mg tablet 1 tab PO QID Patient Comments: TAKE ONE TABLET BY MOUTH EVERY 6 HOURS chlorthalidone 25 mg tablet 25 mg PO DAILY Qty: 90 3RF Referrals Follow up/Referrals: Provider,Referral, MD [Primary Care Provider] - See instructions Activity Restrictions/Add. Instructions Additional Instructions/Restrictions: Start antibiotic today. Be sure to complete entire prescription even if feeling better Monitor temp. Tylenol every 4 hours as needed and / or ibuprofen every 6 hours as needed ( As long as your primary care physician has told you that it ok to take both. For fever/aches/pains ER if no less than 101 despite Tylenol or Motrin Humidifier/vaporizer or hot steamy shower Mucinex during the day for your cough and cough suppressant only at night. Be sure to drink lots of water. Insurance may not cover a prescriptions for mucinex. Might be cheaper to get 400mg tablets and take 2 tablet in the morning, mid-day and evening with lots of water. *Tessalon Perles will not cause drowsiness but use at bedtime to help stop cough so that you may get some rest. *Start steroid today. Helps with inflammation therefore, cough and wheezing. Follow directions on the package. Reviewed side effects. Patient reports taking them before. Follow up IMMEDIATELY for new or worsening of symptoms OR no noticeable improvement over the next 48-72 hours. 911 immediately for any life threatening symptoms such as chest pain or difficulty breathing Clinical Impressions Clinical Impression: Sinusitis, Bronchitis Instructions Patient Instructions: DI for Sinusitis, Acute Bronchitis Print Language Print Language: [place]an Discharge ED Provider: Teresa Peña [facility] [place] General Stated complaint: head chest congestion Mode of Arrival: Ambulatory Source of Information: Patient Time Seen by Provider: 04/02/24 12:08 Description of Symptoms (Recalled from Triage Doc. by RN): CHEST/HEAD CONGESTION, COUGH HEENT Symptoms (Recalled from RN notes): No Resp Symptoms (Recalled from RN notes): Yes Skin Symptoms (Recalled from RN notes): No MS Symptoms (Recalled from RN notes): No Functional Status (Recalled from RN notes): WNL History of Present Illness Provider Complaint: Patient states that she has been having sinus congestion and pressure and feels like is has moved into her chest area States that she is having pressure behind her eyes, drainage in the back of her throat and has her throat irriatated and kumari when she coughs states today she wasnt feeling any better so she came in to get checked states she is an everyday smoker and feels like she has bronchitis Related Data Home Medications ?Medication ?Instructions ?Recorded ?Confirmed gabapentin 300 mg capsule 600 mg PO TID Pain #180 caps 04/18/19 04/02/24 tizanidine 4 mg tablet 4 mg PO BID PRN pain #60 tabs 12/06/19 04/02/24 oxycodone-acetaminophen 7.5 mg-325 1 tab PO QID 09/25/23 04/02/24 mg tablet Previous Rx's ?Medication ?Instructions ?Recorded chlorthalidone 25 mg tablet 25 mg PO DAILY #90 tabs 09/25/23 amoxicillin 875 mg-potassium 1 tab PO Q12H #20 tabs 04/02/24 clavulanate 125 mg tablet azithromycin 250 mg tablet See Rx Instructions PO .COMPLEX 5 04/02/24 (Zithromax Z-Ras) days #6 tabs benzonatate 100 mg capsule 100 mg PO TID PRN cough #30 caps 04/02/24 guaifenesin 600 mg tablet, 1,200 mg (2 x 600 mg) PO BID PRN 04/02/24 extended release 12 hr (Mucinex) cough #20 tabs prednisone 20 mg tablet 20 mg PO BID 5 days #10 tabs 04/02/24 Allergies Allergy/AdvReac Type Severity Reaction Status Date / Time No Known Allergies Allergy Verified 11/07/23 10:34 Worker's Comp Is this a Worker's Comp case?: No [facility] Disclaimer: The information contained in this section may have been updated after the patient was seen, as this information can be updated by other users. Medical History Left ventricular hypertrophy Gastroesophageal reflux disease Right bundle branch block HLD (hyperlipidemia) Diastolic dysfunction CAD (coronary artery disease) Abnormal ECG Tobacco abuse Cervical spondylosis Tricuspid valve disease Hypertension Neuropathy Lumbar disc disease with radiculopathy Surgical History History of hip replacement History of total hip replacement Social History Smoking Status: Current every day smoker tobacco type: cigarettes packs per day: 1 alcohol intake: never substance use type: denies use current occupational status: disabled household members: spouse caffeine: Yes ROS Obtained: Yes All systems reviewed & no additional complaints except as documented and Yes Systems reviewed as appropriate & no additional complaints except as documented Constitutional Constitutional: Reports system reviewed and no additional complaints, except as documented and Reports as per HPI ENT Ears, Nose, Mouth, and Throat: Reports system reviewed and no additional complaints, except as documented, Reports as per HPI, Reports sinus pain and Reports sinus pressure Cardiovascular Cardiovascular: Reports system reviewed and no additional complaints, except as documented and Reports as per HPI Respiratory Respiratory: Reports system reviewed and no additional complaints, except as documented, Reports as per HPI, Denies shortness of breath, Reports chest congestion and Reports cough Gastrointestinal Gastrointestingal: Reports system reviewed and no additional complaints, except as documented and as per HPI Physical Exam General General appearance: alert and in no apparent distress ENT ENT exam: Present mucous membranes moist Expanded ENT Exam Nose exam: Present sinus tenderness Throat exam: Present other (Pharyngeal erythema noted with PND) Respiratory Respiratory exam: Present normal lung sounds bilaterally and other (rhonci clears with cough); Absent respiratory distress or wheezes Cardiovascular Cardiovascular exam: Present regular rate, normal rhythm and normal heart sounds Abdominal Exam Abdominal exam: Present soft and normal bowel sounds; Absent distention or tenderness Neurological Exam Neurological exam: Present alert, oriented X3 and normal gait Medical Decision Making Medical Records Screening: Per USPSTF and CDC recommendations, given the prevalence of disease in our region, it is our hospital?s policy to screen for HIV and viral Hepatitis for all patients aged 18 and over and those with ongoing risk factors. Osmar Inquiry Pt receiving controlled substance: No Osmar was queried for this patient: No Vital Signs: 04/02/24 11:53 04/02/24 12:02 Temperature 98.1 F Temperature Source Oral Pulse Rate [Left Brachial] 68 63 Respiratory Rate 20 Blood Pressure [Left Arm] 127/75 Blood Pressure Mean [Left Arm] 92 02 Sat by Pulse Oximetry 93 L 97
[2024-04-02 12:27] VITALS: BP 127/75; PULSE 63; RESP 20; TEMP 36.7
== END 2024-04-02 12:34 | disposition home or self-care (01) ==
PROVIDERS: Emergency Provider Nurse Practitioner
DX: J01.90 Acute sinusitis, unspecified (principal); J20.9 Acute bronchitis, unspecified
CPT/HCPCS: 99213; G0381

== ENCOUNTER 2024-12-17 15:06 | Outpatient (CLI) | payer OTHER, SELFPAY ==
--- OUTSIDE RECORDS SUMMARY | 2024-11-06 07:00 | XMS_ITS ---
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 Name Role Phone Dale Rasmussen II Unavailable [phone] Kinza Mynor Unavailable Unavailable Allergies Allergen (clinical drug ingredient) Drug/Non Drug Allergy documented on EMR Reaction Allergy Type Onset Date Status diclofenac Voltaren stomach upset Drug Allergy Ac tive Results Component Value Reference Range Notes Urine Test ANALYZER Reviewed date:11/07/2024 07:38:03 AM Interpretation:+OPI +OXY Performing Lab: Notes/Report: +OPI +OXY Heroin Metabolite (6AM) NEG Amphetamine (AMP) NEG Benzodiazepine (PINKY) NEG Buprenorphine NEG Cocaine (WIL) NEG Hydrocodone (HYD) NEG Methadone (MTD) NEG Opiate (OPI) POS Oxycodone (OXY) POS REASON FOR VISIT back pain, neck pain Medications Medication SIG (Take, Route, Frequency, Duration) Notes Start Date End Date Status Acetaminophen-Oxycodone Hydrochloride 325 mg-7.5 mg 1 tab(s) orally 3 times a day; Duration: 28 days December 052024 DO NOT FILL SOONER THAN 28 DAYS, (OK TO FILL EARLY, ONLY IF CLOSED) Active tiZANidine 4 mg 1 tab orally 2 times a day; Duration: 28 days Active Acetaminophen-Oxycodone Hydrochloride 325 mg-7.5 mg 1 tab(s) orally 3 times a day; Duration: 28 days November (OK TO FILL EARLY, ONLY IF CLOSED) Active gabapentin 300 mg 2 cap(s) orally 3 times a day; Duration: 28 days DO NOT FILL SOONER THAN 28 DAYS, (OK TO FILL EARLY, ONLY IF CLOSED) Active DULoxetine Hydrochloride 30 mg 1 cap(s) orally 2 times a day; Duration: 28 days DO NOT FILL SOONER THAN 28 DAYS, (OK TO FILL EARLY, ONLY IF CLOSED) 11/06/2024 Active chlorthalidone 25 mg 1 tab(s) orally once a day; Duration: 30 day(s) Active ergocalciferol 50,000 intl units 1 cap(s) orally once a week Active Vital Signs Blood pressure systolic 123 mm Hg 11/07/19 25 Blood pressure diastolic 84 mm Hg 025 Heart Rate 77 /min 11/06/2024 Height 65.5 in 11/06/2024 Weight 270 lbs 11/06/2024 BMI 44.24 kg/m2 11/06/2024 Encounters Encounter Location Date Provider Diagnosis [facility] [address] [place] [address] 11/06/2024 Dale Rasmussen 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 Refill Percocet 7.5/325mg QID - decrease to TID 2. Refill Gabapentin 300mg 2 caps TID 3. Refill Tizanidine 4mg BID 4. Start Cymbalta 30mg BID 5. Tens Unit 6. Compound cream 7.. Declines injections 8..Reviewed Narcotic Agreement policies, specifically stressed a) pain medication from one provider only b) no illegal drug use c) take pain medication as prescribed, follow directions. July 16, 2024: Review of history and previous note: Ms. Ramirez is a 64-year-old lady with chronic left shoulder and lower back pain. She has no history of previous surgery on the shoulder or the lower back. She denies any change in the character or intensity of her pain but does note that she is having incfeased pain in her b/l shoulders and in the associated musculature. She reports pain 3-4/10 in her low back. She describes this as aching, burning and sharp. Currently she is taking Percocet 7.5/325 1 p.o. 4 times daily. She denies any adverse side effects from her medications. [place] and UDS were reviewed today and UDS. Opioid risk assessment is moderate. We did review the limitations of management with the opioid analgesics. 09/10/2024 Ms. Hopper, a 64-year-old female, presents for follow-up with ongoing lower back pain and left shoulder pain radiating to the left bicep, without distal upper extremity involvement. She has no history of cervical or shoulder surgery, and her current pain level is 4-5/10. She has not previously undergone injection therapy or physical therapy and declines injection treatment at this time. Review of the definitive urine drug screen from 07/16/2024 showed unexpected results: positive for hydrocodone (HYD+) and THC. The patient reports taking CBD gummy bears as a possible explanation for the THC result. Today's urine screen (09/10/2024) was again unexpected (HYD+) and sent for definitive testing. The patient was counseled on the incompatibility of opioid therapy with THC in our practice and was advised to discontinue all CBD products immediately. A prior urine drug screen from May 21 showed absence of gabapentin and the presence of oxycodone, although the patient insists she takes gabapentin daily. Due to these inconsistencies, her oxycodone dosage is being reduced to three times daily. A follow-up definitive urine drug screen will be sent today, with the understanding that persistent THC presence will result in meeting with MD. The patient was clearly informed of this policy. 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 She reports no significant changes in her pain condition otherwise, but has had increased depression since loss of mother. Discussed seeing PCP. Refill Percocet 7.5/325 mg - decreased to TID Refill Gabapentin 300 mg, 2 capsules TID Tizanidine 4 mg BID Repeat UDS (definitive) today, Follow-up in 2 months. 11/06/2024:The patient is a 64-year-old female presenting with chronic pain involving the low back and bilateral shoulders, with the left shoulder radiating to the bicep but without distal upper extremity involvement. She reports constant, fluctuating pain described as aching, burning, and sharp, with an average pain level of 4/10. Pain is exacerbated by driving, housework, and exercise and affects her ability to work, drive, perform home chores, and engage in family activities. She has lost 43 lbs and continues to grieve the recent loss of her mother. 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 She is currently prescribed Oxycodone 7.5/325 mg TID to QID and Gabapentin 300 mg TID, which provide approximately 45% pain relief for 4-6 hours. She denies any medication side effects. A history of THC in her urine is noted. At this time,we will initiate Cymbalta for additional pain and mood support and order a TENS unit and compound cream. She declines further injection therapy at this time. We will continue her current opioid regimen and adjunctive therapies, including refilling Tizanidine 4 mg BID, maintaining Gabapentin 300 mg TID, and using non-pharmacologic modalities such as heat/ice and exercise. The patient will follow up in two months or sooner if needed. [place] and UDS were reviewed. No side effects to her current medications were reported. HEP is ongoing. Opioid risk assessment remains moderate. 11/06/2024 Spondylosis without myelopathy or radiculopathy, lumbar region (ICD-10 - M47.816) July 16, 2024: Review of history and previous note: Ms. Ramirez is a 64-year-old lady with chronic left shoulder and lower back pain. She has no history of previous surgery on the shoulder or the lower back. She denies any change in the character or intensity of her pain but does note that she is having incfeased pain in her b/l shoulders and in the associated musculature. She reports pain 3-4/10 in her low back. She describes this as aching, burning and sharp. Currently she is taking Percocet 7.5/325 1 p.o. 4 times daily. She denies any adverse side effects from her medications. [place] and UDS were reviewed today and UDS. Opioid risk assessment is moderate. We did review the limitations of management with the opioid analgesics. 09/10/2024 Ms. Hopper, a 64-year-old female, presents for follow-up with ongoing lower back pain and left shoulder pain radiating to the left bicep, without distal upper extremity involvement. She has no history of cervical or shoulder surgery, and her current pain level is 4-5/10. She has not previously undergone injection therapy or physical therapy and declines injection treatment at this time. Review of the definitive urine drug screen from 07/16/2024 showed unexpected results: positive for hydrocodone (HYD+) and THC. The patient reports taking CBD gummy bears as a possible explanation for the THC result. Today's urine screen (09/10/2024) was again unexpected (HYD+) and sent for definitive testing. The patient was counseled on the incompatibility of opioid therapy with THC in our practice and was advised to discontinue all CBD products immediately. A prior urine drug screen from May 21 showed absence of gabapentin and the presence of oxycodone, although the patient insists she takes gabapentin daily. Due to these inconsistencies, her oxycodone dosage is being reduced to three times daily. A follow-up definitive urine drug screen will be sent today, with the understanding that persistent THC presence will result in meeting with MD. The patient was clearly informed of this policy. 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 She reports no significant changes in her pain condition otherwise, but has had increased depression since loss of mother. Discussed seeing PCP. Refill Percocet 7.5/325 mg - decreased to TID Refill Gabapentin 300 mg, 2 capsules TID Tizanidine 4 mg BID Repeat UDS (definitive) today, Follow-up in 2 months. 11/06/2024:The patient is a 64-year-old female presenting with chronic pain involving the low back and bilateral shoulders, with the left shoulder radiating to the bicep but without distal upper extremity involvement. She reports constant, fluctuating pain described as aching, burning, and sharp, with an average pain level of 4/10. Pain is exacerbated by driving, housework, and exercise and affects her ability to work, drive, perform home chores, and engage in family activities. She has lost 43 lbs and continues to grieve the recent loss of her mother. 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 She is currently prescribed Oxycodone 7.5/325 mg TID to QID and Gabapentin 300 mg TID, which provide approximately 45% pain relief for 4-6 hours. She denies any medication side effects. A history of THC in her urine is noted. At this time,we will initiate Cymbalta for additional pain and mood support and order a TENS unit and compound cream. She declines further injection therapy at this time. We will continue her current opioid regimen and adjunctive therapies, including refilling Tizanidine 4 mg BID, maintaining Gabapentin 300 mg TID, and using non-pharmacologic modalities such as heat/ice and exercise. The patient will follow up in two months or sooner if needed. [place] and UDS were reviewed. No side effects to her current medications were reported. HEP is ongoing. Opioid risk assessment remains moderate. Plan Of Treatment Medication Medication Name Sig Start Date Stop Date Notes Acetaminophen-Oxycodone Hydrochloride 325 mg-7.5 mg 1 tab(s) orally 3 times a day; Duration: 28 days December 052024 DO NOT FILL SOONER THAN 28 DAYS, (OK TO FILL EARLY, ONLY IF CLOSED) tiZANidine 4 mg 1 tab orally 2 times a day; Duration: 28 days Acetaminophen-Oxycodone Hydrochloride 325 mg-7.5 mg 1 tab(s) orally 3 times a day; Duration: 28 days November (OK TO FILL EARLY, ONLY IF CLOSED) gabapentin 300 mg 2 cap(s) orally 3 times a day; Duration: 28 days DO NOT FILL SOONER THAN 28 DAYS, (OK TO FILL EARLY, ONLY IF CLOSED) DULoxetine Hydrochloride 30 mg 1 cap(s) orally 2 times a day; Duration: 28 days 11/06/2024 DO NOT FILL SOONER THAN 28 DAYS, (OK TO FILL EARLY, ONLY IF CLOSED) Treatment Notes Assessment Notes Other halfway (current) drug therapy 11/06/2024 1. Refill Percocet 7.5/325mg QID - decrease to TID 2. Refill Gabapentin 300mg 2 caps TID 3. Refill Tizanidine 4mg BID 4. Start Cymbalta 30mg BID 5. Tens Unit 6. Compound cream 7.. Declines injections 8..Reviewed Narcotic Agreement policies, specifically stressed a) pain medication from one provider only b) no illegal drug use c) take pain medication as prescribed, follow directions. Next Appt Details Follow Up: 2 Months, Reason: Provider Name:Dale benito, 01/01/2025 10:15:00 AM, [address], [address], [place], [address], Procedure Notes * Category Sub-Category Detail Notes PROVIDER ENCOUNTER AND OVERSIGHT Consult Performed By: Jasiel WallaceHEADWAITRESS-SEANMelida Tapia 09/12/2024 08:19:09 PM > collaborated treatment plan with Dale cat M.D. , supervising physician who was present in office during consultation Progress Notes * Carmita RAMIREZ KDOB:1959 (64 yo F)Acc No.[id number]:11/06/2024 FollowUP Patient: Carmita PRNICE Provider: Demario Rasmussen II, M.D. Resource:Jasiel WallaceDRIVEMATIC MACHINE OPERATOR SIGNAL APPRENTICE-BC-SEANMelida Tapia :1960 A ge:64 Y S ex:Female Date:11/06/2024 Address:[address] [place] [address] [id number] Subjective: * Chief Complaints: * 1 . Back pain. 2. Neck pain. * HPI: T ODAYS PAIN EVALUATION: 64 year old female presents with c/o MEDICATION FOLLOW UP: T he patient is currently prescribed Oxycodone 7.5/325mg TID /QID and Gabapentin 300mg TID, which provides 45% relief of pain symptoms for 4-6 hours. The last dose was taken 0 11/06/2024. Denies any side effects. CURRENT PAIN SYMPTOMS: L ocation of Worst Pain: L ow Back JOSE MIGUEL shoulders, P ain Frequency: c onstant, fluctuating, always, P ain Description:?aching, burning, sharp, A verage Pain Score VAS: 4 , P ain Exacerbation: Driving, House work, exercise, P ain Alleviation: m edications, heat/ice , exercise, A DL/Quality of Life Interference: Work, driving, home chores, family acitivites , Everything. P AIN MANAGEMENT TREATMENT HISTORY: IMAGING HISTORY: 0 08/21/2014 Sacroiliac Joint:Minimal SI arthropathy. 0 08/21/2014 XRLumbar 5 Vws:Multilevel degenerative disc disease with facet arthritic changes at L4-L5 and L5-S1 as well as bilateral sacroiliac arthritic change. 1 06/15/2015 MRI Cervical:Cervical spondylosis most evident mild C-spine. Vertebral bodies are intact. Normal alignment. No subluxation. Cranial cervical junction appears satisfactory. C2-3 and C3-4 disc intact and unremarkable. 1 06/10/2019 MRI Lumbar:Abnormal MRI of the lumbar spine with mulitlevel lumbar spondylosis with degenerative disc disease, bulging disc, facet ligamentum hypertrophy with lateral recess and foraminal narrowing. Please see above for detailed description at each level 1 06/10/2019 XR LT Hip:Severe osteoarthritis of the left hip with other osetoarthritic/degenerative changes as described above . P REVIOUS INJECTION\PROCEDURE HISTORY:? D enies . P HYSICAL/AQUA THERAPY/DME/OTHER HISTORY: 0 09/2017 - Physical Therapy program completed- Helpful S he completed 6 or 7 sessions of PT at [facility] February- March, it is unhelpful. 0 05/21/2024 - patient is currently attending PT for hip, reports it is helpfutammy pt is doing chair excersises at home 09/10/2024 0 11/06/2024 Patient continues a prescribed home exercise program 3-5 times per week. P ERTINENT SURGICAL EVALUATIONS/SPECIALIST CONSULTS 0 07/02/2021 -Total LT hip replacement with Dr. Anderson, patient is a candidate. . P REVIOUS PAIN [facility]INIC [facility]ARE: [facility] . S JOSEPHINE OF INITIAL EVALUATION: 0 12/27/2017- New patient consult referred by CPS for chronic low back pain. Pain began approximately 2004, without cause. The pain is located in the lower lumbar region referring to left hip, buttock and leg wraping down to and stopping in the ankle.. Pain from lower back to left leg and knee. Pain is persistent and chronic and started for no reason. No recent imaging. Pain is described as dull and aching. Walks with a cane when gets tired. PEXam is normal except for left straight leg raising test. No deficits. No point tenderness of bilat SI joints. Plan of care is to return to Dr Echols for care. We gave one month of MEDS. We discussed at length the injections and her fear of needles and that Change is a Choice and she has to choose to try everything to get better of tolerance to MEDS will happen and can't change that. Prior UDS reviewed. No prior abnormal UDS noted. Preliminary UDS today in office is appropriate. Will send for confirmation. Patient denies any side effects to this medication. They report the edication does allow for tolerance of activities of daily living. [place] and UDS were reviewed today. Opioid risk assessment is low., The plan is to continue current medication regimen as prescribed. The goal is for safe and therapeutic pain control which is providing adequate pain relief while being mindful of potential tolerance, dependency, and addiction issues.. C OMPLIANCE: RISK ASSESSMENT AND STRATIFICATION: R ISK GROUP: MODERATE RISK membrane stabilizer . U RINE DRUG TESTIN 05/26/2023 Screen Expected Definitive Unexpected (+THC 115) 0 05/21/2024 Screen Unexpected (HYD+) ; Definitive Unexpected (-GBP) 0 07/16/2024 Screen Unexpected (HYD+) ; Definitive Unexpected (+IDH120) 0 09/10/2024 Screen Unexpected (HYD +); Definitive Expected 0 11/06/2024 Screen Expected . M ONITORING: M orphine Equivalent (MME): 40mg K ASPER reviewed today and appropriate . T ESTING/RISK ASSESSMENTS O RT Score/Result: 2, Family history of substance abuse, Illegal drugs. * ROS: G ENERAL: Fever D enies. H EENT: Sore throat D enies. C ARDIOVASCULAR: Positive for d enies cardiovascular symptoms. ? R ESPIRATORY: Positive for d enies respiratory issues. G ASTROINTESTINAL: Positive for h eartburn. G ENITOURINARY: Positive for d enies genitourinary issues. M USCULOSKELETAL: Positive for b ack pain, joint pain. swelling. stiffness.? N EUROLOGICAL: Positive for d enies neurological issues. P SYCHIATRIC: Positive for d enies psychological issues. E NDOCRINE: Positive for d enies endocrine issues. * Medical History: h ypertension diagnosed in 2009, managed by Dr. Ruthy Harman, hiatal hernia diagnosed in 1999, managed by Dr. Ruthy Harman, reflux diagnosed in 1999, managed by Dr. Ruthy Harman. * Surgical History: c holecystectomy / [facility] / 7 day stay 1991, appendectomy / [facility] / Dr. Addison / 7 day stay 1970, bariatic surgery / [facility] / 6 day stay 1989, Left THR / [facility]/ Dr. Brown 09/2021. * Hospitalization/Major Diagno stic Procedure: D enies Past Hospitalization. * Family History: N on-Contributory. Denies Family History of Substance Abuse. * Social History: S moking: yes . P ersonal History Drug Use: No. Alcohol: No. * Medications: T aking tiZANidine 4 mg tablet 1 tab orally 2 times a day , Taking chlorthalidone 25 mg tablet 1 tab(s) orally once a day , Taking ergocalciferol 50,000 intl units capsule 1 cap(s) orally once a week , Taking gabapentin 300 mg capsule 2 cap(s) orally 3 times a day , Taking Acetaminophen-Oxycodone Hydrochloride 325 mg-7.5 mg tablet 1 tab(s) orally 3 times a day , Medication List reviewed and reconciled with the patient * Allergies: V oltaren: stomach upset - Side Effects. Objective: * Vitals: B P:123/84, HR:77, Pain VAS (0-10):4, Ht: 65.5, Wt:270, BMI:44.24Index. * Examination: G eneral Examination: Nurse/Air Conditioning Unit Assembler: Jose Fish (MA-Lex) 11/06/2024 11:24:35 AM > . General Appearance: w ell-nourished individual in no acute distress. The patient is alert and oriented and cooperative for evaluation. HEENT: unremarkable. Neck, Thyroid : supple. Heart: regular rate. Neurologic Exam: P atient ambulates with an antalgic gait, pitched forward. Skin normal, no rash. Extremities: no clubbing, no edema. ? L umbar Spine/Lower Back: Palpation: diffuse tenderness throughout lumbar region, most particularly over lower lumbar facet joints. Spasms absent. Inspection: Spinal alignment no abnormal curvature noted.? Straight leg raising test: negative bilaterally. Sensory exam: s ensation intact to light touch throughout bilateral lower extremities, no edema or discoloration noted. Motor system: m otor strength 5/5 in all muscle groups bilaterally. Range of motion: R OM moderately limited, moderate pain induced. Hyperextension - Pain with Facet loading. S houlder / Upper arm: Shoulder: B ilateral Shoulder pain, left > right. Inspection: n o swelling or redness, no deformities. Palpation S hooting pain down arm, Tenderness noted to brachial plexus. Range of motion: r estricted rotations and abduction. ? Assessment: * Assessment: 1. O ther halfway (current) drug therapy - Z79.899 (Primary) 2 . S pondylosis without myelopathy or radiculopathy, lumbar region - M47.816 July 16, 2024: Review of history and previous note: Ms. Ramirez is a 64-year-old lady with chronic left shoulder and lower back pain. She has no history of previous surgery on the shoulder or the lower back. She denies any change in the character or intensity of her pain but does note that she is having incfeased pain in her b/l shoulders and in the associated musculature. She reports pain 3-4/10 in her low back. She describes this as aching, burning and sharp. Currently she is taking Percocet 7.5/325 1 p.o. 4 times daily. She denies any adverse side effects from her medications. [place] and UDS were reviewed today and UDS. Opioid risk assessment is moderate. We did review the limitations of management with the opioid analgesics. 09/10/2024 Ms. Hopper, a 64-year-old female, presents for follow-up with ongoing lower back pain and left shoulder pain radiating to the left bicep, without distal upper extremity involvement. She has no history of cervical or shoulder surgery, and her current pain level is 4-5/10. She has not previously undergone injection therapy or physical therapy and declines injection treatment at this time. Review of the definitive urine drug screen from 07/16/2024 showed unexpected results: positive for hydrocodone (HYD+) and THC. The patient reports taking CBD gummy bears as a possible explanation for the THC result. Today's urine screen (09/10/2024) was again unexpected (HYD+) and sent for definitive testing. The patient was counseled on the incompatibility of opioid therapy with THC in our practice and was advised to discontinue all CBD products immediately. A prior urine drug screen from May 21 showed absence of gabapentin and the presence of oxycodone, although the patient insists she takes gabapentin daily. Due to these inconsistencies, her oxycodone dosage is being reduced to three times daily. A follow-up definitive urine drug screen will be sent today, with the understanding that persistent THC presence will result in meeting with MD. The patient was clearly informed of this policy. 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 She reports no significant changes in her pain condition otherwise, but has had increased depression since loss of mother. Discussed seeing PCP. Refill Percocet 7.5/325 mg - decreased to TID Refill Gabapentin 300 mg, 2 capsules TID T izanidine 4 mg BID Repeat UDS (definitive) today, Follow-up in 2 months. 11/06/2024:The patient is a 64-year-old female presenting with chronic pain involving the low back and bilateral shoulders, with the left shoulder radiating to the bicep but without distal upper extremity involvement. She reports constant, fluctuating pain described as aching, burning, and sharp, with an average pain level of 4/10. Pain is exacerbated by driving, housework, and exercise and affects her ability to work, drive, perform home chores, and engage in family activities. She has lost 43 lbs and continues to grieve the recent loss of her mother. 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 She is currently prescribed Oxycodone 7.5/325 mg TID to QID and Gabapentin 300 mg TID, which provide approximately 45% pain relief for 4-6 hours. She denies any medication side effects. A history of THC in her urine is noted. At this time,we will initiate Cymbalta for additional pain and mood support and order a TENS unit and compound cream. She declines further injection therapy at this time. We will continue her current opioid regimen and adjunctive therapies, including refilling Tizanidine 4 mg BID, maintaining Gabapentin 300 mg TID, and using non-pharmacologic modalities such as heat/ice and exercise. The patient will follow up in two months or sooner if needed. [place] and UDS were reviewed. No side effects to her current medications were reported. HEP is ongoing. Opioid risk assessment remains moderate. Plan: * Treatment: Value Reference Range H eroin Metabolite (6AM) NEG * A mphetamine (AMP) NEG * B enzodiazepine (PINKY) NEG * B uprenorphine NEG * C ocaine (WIL) NEG * H ydrocodone (HYD) NEG * M ethadone (MTD) NEG * O piate (OPI) POS * O xycodone (OXY) POS * Bulloch(MA-Sean)Blanche 11/06 4:52:58 PM >Jasiel (DRIVEMATIC MACHINE OPERATOR SIGNAL APPRENTICE-BC-SEAN)Melida 11/06/2024 09:56:28 PM > Appropriate. Do not send for confirmation Notes: 11/06/2024 1. Refill Percocet 7.5/325mg QID - decrease to TID 2. Refill Gabapentin 300mg 2 caps TID 3. Refill Tizanidine 4mg BID 4. Start Cymbalta 30mg BID 5. Tens Unit 6. Compound cream 7..Declines injections 8..Reviewed Narcotic Agreement policies, specifically stressed a) pain medication from one provideronly b) no illegal drug use c) take pain medication as prescribed, follow directions. ?? * Procedures: Ha BENAVIDES ENCOUNTER AND OVERSIGHT: Consult Performed By: Luis mcdonnell (HEADWAITRESS-SEAN)Melida 09/12/2024 08:19:09 PM >. c ollaborated treatment plan with Demario Rasmussen M.D. , supervising physician who was present in office during consultation. * Follow Up: 2 Months * * Electronically signed by Gonsalo Weathers (DRIVEMATIC MACHINE OPERATOR SIGNAL APPRENTICE-BC-SEAN) on 11/17/2024 at 10:24 AM CDT Sign off status: Completed true * Provider: Demario Rasmussen II, M.D. Date: 0 11/06/2024 Generated for Cynthia williamson/Bella/David on: 0 12/17/2024 02:11 PM CDT History and Physical Notes * HPI (History of Present Illness) Category Sub-Category Detail Notes Category Not es PAIN MANAGEMENT TREATMENT HISTORY SUMMARY OF INITIAL EVALUATION: 12/27/2017- New patient consult referred by CPS for chronic low back pain. Pain began approximately 2004, without cause. The pain is located in the lower lumbar region referring to left hip, buttock and leg wraping down to and stopping in the ankle.. Pain from lower back to left leg and knee. Pain is persistent and chronic and started for no reason. No recent imaging. Pain is described as dull and aching. Walks with a cane when gets tired. PEXam is normal except for left straight leg raising test. No deficits. No point tenderness of bilat SI joints. Plan of care is to return to Dr Echols for care. We gave one month of MEDS. We discussed at length the injections and her fear of needles and that Change is a Choice and she has to choose to try everything to get better of tolerance to MEDS will happen and can't change that. Prior UDS reviewed. No prior abnormal UDS noted. Preliminary UDS today in office is appropriate. Will send for confirmation. Patient denies any side effects to this medication. They report the edication does allow for tolerance of activities of daily living. [place] and UDS were reviewed today. Opioid risk assessment is low., The plan is to continue current medication regimen as prescribed. The goal is for safe and therapeutic pain control which is providing adequate pain relief while being mindful of potential tolerance, dependency, and addiction issues. IMAGING HISTORY: 08/21/2014 Sacroiliac Joint: Minimal SI arthropathy. 08/21/2014 XR Lumbar 5 Vws: Multilevel degenerative disc disease with facet arthritic changes at L4-L5 and L5-S1 as well as bilateral sacroiliac arthritic change. 04/14/2016 MRI Cervical:Cervical spondylosis most evident mild C-spine. Vertebral bodies are intact. Normal alignment. No subluxation. Cranial cervical junction appears satisfactory. C2-3 and C3-4 disc intact and unremarkable. 04/09/2020 MRI Lumbar:Abnormal MRI of the lumbar spine with mulitlevel lumbar spondylosis with degenerative disc disease, bulging disc, facet ligamentum hypertrophy with lateral recess and foraminal narrowing. Please see above for detailed description at each level 04/09/2020 XR LT Hip:Severe osteoarthritis of the left hip with other osetoarthritic/degenerative changes as described above PHYSICAL/AQUA THERAPY/DME/OT HER HISTORY: 09/2017 - Physical Therapy program completed- Helpful She completed 6 or 7 sessions of PT at [facility] February-March, it is unhelpful. 05/21/2024 - patient is currently attending PT for hip, reports it is tammy rao pt is doing chair excersises at home 09/10/2024 11/06/2024 Patient continues a prescribed home exercise program 3-5 times per week PERTINENT SURGICAL EVALUATIONS/SPECIALIST CONSULTS 07/02/2021 -Total LT hip replacement with Dr. Anderson, patient is a candidate. PREVIOUS INJECTION\PROCEDURE HISTORY: Denies PREVIOUS PAIN CLINIC CARE: [facility] COMPLIANCE RISK ASSESSMENT AND STRATIFICATI ON: RISK GROUP: MODERATE RISK membrane stabilizer URINE DRUG TESTIN03/26/2024 Screen Ex pected Definitive Unexpected (+THC 115) 05/21/2024 Screen Unexpected (HYD+) ; Definitive Unexpected (-GBP) 07/16/2024 Screen Unexpected (HYD+) ; Definitive Unexpected (+[id number]) 09/10/2024 Screen Unexpected (HYD +); Definitive Expected 11/06/2024 Screen Expected MONITORING: Morphine Equivalent (MME): 40mg [place] reviewed today and appropriate TESTING/RISK ASSESSMENTS ORT Score/Result: 2, Family history of substance abuse, Illegal drugs TODAYS PAIN EVALUATION MEDICATION FOLLOW UP: The patient is currently prescribed Oxycodone 7.5/325mg TID /QID and Gabapentin 300mg TID, which provides 45% relief of pain symptoms for 4-6 hours. The last dose was taken 11/06/2024. Denies any side effects CURRENT PAIN SYMPTOMS: Location of Worst Pain:: Low Back JOSE MIGUEL shoulders Pain Frequency:: constant, f luctuating, always Pain Description:: aching, burning, criss p Average Pain Score VAS:: 4 Pain Exacerbation:: Driving, House work, exercise Pain Alleviation:: medications, heat/ice , exercise ADL/Quality of Life Interference:: Work, driving, home chores, family acitivites , Everything Examination Category Sub-Category Detail Notes Category Not es General Examination HEENT: unremarkable Neck, Thyroid : supple Heart: regular rate Extremities: no clubbing, no junie a General Appearance: well-nourished indiv idual in no acute distress. The patient is alert and oriented and cooperative for evaluation Skin normal, no rash Neurologic Exam: Patient ambulates wi th an antalgic gait, pitched forward Nurse/Air Conditioning Unit Assembler: Mariaelena Villela (MA-Lex) 11/06/2024 11:24:35 AM > Lumbar Spine/Lower Back Straight leg raising test: neg ative bilaterally Motor system: motor strength 5/5 i n all muscle groups bilaterally Sensory exam: sensation intact to light touch throughout bilateral lower extremities, no edema or discoloration noted Range of motion: ROM moderately limit ed, moderate pain induced. Hyperextension - Pain with Facet loading Inspection: Spinal alignment no abnormal curvature noted Palpation: diffuse tenderness t hroughout lumbar region, most particularly over lower lumbar facet joints. Spasms absent Shoulder / Upper arm Range of motion: restricted rotat ions and abduction Shoulder: Bilateral Shoulder p ain, left > right Inspection: no swelling or redne ss, no deformities Palpation Shooting pain down a rm, Tenderness noted to brachial plexus
--- NOTE | 2024-12-17 15:09 | MR_ITS ---
FINAL REPORT TECHNIQUE: Multiplanar MR without contrast CLINICAL HISTORY: LUMBAR RADICULOPATHY COMPARISON: None FINDINGS: Sagittal images show normal vertebral height. There is mild anterolisthesis of 3 mm of L4 on L5 and L5 on S1. Marrow signal pattern is unremarkable. L1-2: Mild annular disc bulge. Small left paracentral disc protrusion. Mild left-sided canal stenosis. Mild neural foraminal narrowing. L2-3: Annular disc bulge. Facet overgrowth. Mild central canal stenosis. Moderate bilateral neural foraminal narrowing. L3-4: Moderate annular disc bulge. Moderate facet overgrowth. Moderate central canal stenosis. Moderate to severe neural foraminal narrowing. L4-5: Mild annular disc bulge. Moderate facet overgrowth. Moderate central canal stenosis and neural foraminal narrowing. L5-S1: Minimal annular disc bulge. Severe facet arthropathy. Moderate bilateral neural foraminal narrowing. IMPRESSION: Diffuse degenerative changes most pronounced at L3-4 and L4-5. Reviewed, Interpreted and Dictated by Carlos Jacob MD Transcribed by Carol Dimas Authenticated and [facility]
--- OUTSIDE RECORDS SUMMARY | 2024-12-17 15:12 | XMS_ITS | Patient Health Record ---
Author Organization [facility] Address [address] [place] [address] Care Team Providers Care Dock Loader Name Role Phone Dale Rasmussen II Unavailable [phone] Mynor Echols Unavailable Unavailable Reinier Molina Unavailable [phone] Allergies Allergen (clinical drug ingredient) Drug/Non Drug Allergy documented on EMR Reaction Allergy Type Onset Date Status diclofenac Voltaren stomach upset Drug Allergy Ac tive Results Component Value Reference Range Notes Urine Test ANALYZER Reviewed date:09/10/2024 02:34:46 PM Interpretation:+opi +oxy+hyd Performing Lab: Notes/Report: +opi +oxy+hyd Heroin Metabolite (6AM) NEG Amphetamine (AMP) NEG Benzodiazepine (PINKY) NEG Buprenorphine NEG Cocaine (WIL) NEG Hydrocodone (HYD) POS Methadone (MTD) NEG Opiate (OPI) POS Oxycodone (OXY) POS Urine Test ANALYZER Reviewed date:05/22/2024 08:33:25 AM Interpretation:+HYD+OXY+OPI Performing Lab: Notes/Report: +HYD+OXY+OPI Heroin Metabolite (6AM) NEG Amphetamine (AMP) NEG Benzodiazepine (PINKY) NEG Buprenorphine NEG Cocaine (WIL) NEG Hydrocodone (HYD) POS Methadone (MTD) NEG Opiate (OPI) POS Oxycodone (OXY) POS Urine Test ANALYZER Reviewed date:07/16/2024 01:31:31 PM Interpretation:+HYD +OPI +OXY Performing Lab: Notes/Report: +HYD +OPI +OXY Heroin Metabolite (6AM) NEG Amphetamine (AMP) NEG Benzodiazepine (PINKY) NEG Buprenorphine NEG Cocaine (WIL) NEG Hydrocodone (HYD) POS Methadone (MTD) NEG Opiate (OPI) POS Oxycodone (OXY) POS Urine Test ANALYZER Reviewed date:11/07/2024 07:38:03 AM Interpretation:+OPI +OXY Performing Lab: Notes/Report: +OPI +OXY Heroin Metabolite (6AM) NEG Amphetamine (AMP) NEG Benzodiazepine (PINKY) NEG Buprenorphine NEG Cocaine (WIL) NEG Hydrocodone (HYD) NEG Methadone (MTD) NEG Opiate (OPI) POS Oxycodone (OXY) POS Urine Test ANALYZER Reviewed date:01/29/2024 10:25:39 AM Interpretation:+OPI+OXY Performing Lab: Notes/Report: +OPI+OXY Heroin Metabolite (6AM) NEG Amphetamine (AMP) NEG Benzodiazepine (PINKY) NEG Buprenorphine NEG Cocaine (WIL) NEG Hydrocodone (HYD) NEG Methadone (MTD) NEG Opiate (OPI) POS Oxycodone (OXY) POS Urine Test LCMS Definitive Reviewed date:04/26/2024 02:48:54 PM Interpretation:+gbp+oxy 3/3+thc (118) Performing Lab: Notes/Report: +gbp+oxy 3/3+thc (118) Urine Test LCMS Definitive Reviewed date:07/15/2024 07:14:20 AM Interpretation:+oxy 2/3 Performing Lab: Notes/Report: +oxy 2/3 Urine Test ANALYZER Reviewed date:03/27/2024 11:18:26 AM Interpretation:+OXY+OPI Performing Lab: Notes/Report: +OXY+OPI Heroin Metabolite (6AM) NEG Amphetamine (AMP) NEG Benzodiazepine (PINKY) NEG Buprenorphine NEG Cocaine (WIL) NEG Hydrocodone (HYD) NEG Methadone (MTD) NEG Opiate (OPI) POS Oxycodone (OXY) POS Reason For Referral No Information Medications Medication SIG (Take, Route, Frequency, Duration) Notes Start Date End Date Status tiZANidine 4 mg 1 tab orally 2 times a day; Duration: 28 days Active gabapentin 300 mg 2 cap(s) orally 3 times a day; Duration: 28 days DO NOT FILL SOONER THAN 28 DAYS, (OK TO FILL EARLY, ONLY IF CLOSED) 11/06/2024 Active chlorthalidone 25 mg 1 tab(s) orally once a day; Duration: 30 day(s) Active ergocalciferol 50,000 intl units 1 cap(s) orally once a week Active DULoxetine Hydrochloride 30 mg 1 cap(s) orally 2 times a day; Duration: 28 days 11/06/2024 Active Acetaminophen-Oxycodone Hydrochloride 325 mg-7.5 mg 1 tab(s) orally 3 times a day; Duration: 28 days December 052024 DO NOT FILL SOONER THAN 28 DAYS, (OK TO FILL EARLY, ONLY IF CLOSED) 11/06/2024 Active Acetaminophen-Oxycodone Hydrochloride 325 mg-7.5 mg 1 tab(s) orally 3 times a day; Duration: 28 days November (OK TO FILL EARLY, ONLY IF CLOSED), 11/06/2024 Active DULoxetine Hydrochloride 30 mg 1 cap(s) orally 2 times a day; Duration: 28 days DO NOT FILL SOONER THAN 28 DAYS, (OK TO FILL EARLY, ONLY IF CLOSED) 11/06/2024 Active Problems Problem Type SNOMED Code ICD Code Onset Dates Problem Status W/U Status Risk Notes Problem Lumbosacral spondylosis without myelopathy (34676037) Spondylosis without myelopathy or radiculopathy, lumbar region (M47.816) Active confirmed Problem Other terminologist (current) drug therapy (Z79.899) Active confirmed Vital Signs Heart Rate 77 /min 11/06/2024 Blood pressure diastolic 84 mm Hg 11/06/2024 Height 65.5 in 11/06/2024 Blood pressure systolic 123 mm Hg 11/06/2024 Weight 270 lbs 11/06/2024 BMI 44.24 kg/m2 11/06/2024 Encounters Encounter Location Date Provider Diagnosis [facility] [address] [place] [address] 11/06/2024 Dale Rasmussen Other custodial (current) drug therapy Z79.899 and Spondylosis without myelopathy or radiculopathy, lumbar region M47.816 [facility] [address] [place] [address] 09/10/2024 Dale Rasmussen Other custodial (current) drug therapy Z79.899 and Spondylosis without myelopathy or radiculopathy, lumbar region M47.816 [facility] [address] [place] [address] 07/16/2024 Reinier Molina Other terminologist (current) drug therapy Z79.899 and Spondylosis without myelopathy or radiculopathy, lumbar region M47.816 [facility] [address] [place] [address] 05/21/2024 Dale Rasmussen Other custodial (current) drug therapy Z79.899 and Spondylosis without myelopathy or radiculopathy, lumbar region M47.816 [facility] [address] [place] [address] 03/26/2024 Dale Rasmussen Other terminologist (current) drug therapy Z79.899 and Spondylosis without myelopathy or radiculopathy, lumbar region M47.816 [facility] [address] [place] [address] 01/29/2024 Dale Rasmussen Other custodial (current) drug therapy Z79.899 and Spondylosis without myelopathy or radiculopathy, lumbar region M47.816 [facility] [address] [place] [address] 12/16/2024 Dale Rasmussen [facility] [address] [place] [address] 09/26/2024 Dale Rasmussen [facility] [address] [place] [address] 11/06/2024 Dale aRsmussen Other custodial (current) drug therapy Z79.899 [facility] [address] [place] [address] 10/17/2024 Dale Rasmussen [facility] [address] [place] [address] 09/10/2024 Dale Rasmussen Other terminologist (current) drug therapy Z79.899 [facility] [address] [place] [address] 05/23/2024 Dale Rasmussen [facility] [address] [place] [address] 05/21/2024 Dale Rasmussen Other terminologist (current) drug therapy Z79.899 [facility] [address] [place] [address] 03/26/2024 Dale Rasmussen Other terminologist (current) drug therapy Z79.899 [facility] [address] [place] [address] 01/31/2024 Dale Rasmussen Other custodial (current) drug therapy Z79.899 [facility] [address] [place] [address] 01/31/2024 Dale Rasmussen Other custodial (current) drug therapy Z79.899 Assessments Encounter Date Diagnosis (ICD Code) Assessment Notes Treatment Notes Treatment Clinical Notes Section Notes 05/21/2024 Other custodial (current) drug therapy (ICD-10 - Z79.899) 07/16/2024 Spondylosis without myelopathy or radiculopathy, lumbar region (ICD-10 - M47.816) July 16, 2024: Review of history and previous note: Ms. Lynn is a 64-year-old lady with chronic left [...] limitations of management with the opioid analgesics. July 16, 2024: Ms. Hopper is a 64-year-old lady who presents back for follow-up today with continued lower back pain and left shoulder pain that extends to the left bicep. No distal left upper extremity changes or pain. She has no history of surgery on her neck or the shoulder. Her pain level today is 4/10. She has no history of injections or physical therapy. We talked about injection therapy and she refuses. I reviewed the definitive urine drug screen dated March 26, 2024 and it did show THC but she says that she started taking CBD gummy bears. I explained to the patient that she needs to discontinue those because we cannot give opioid therapy with THC. The urine drug screen May 21 showed no gabapentin but it did show oxycodone. She says that she takes gabapentin every day. Because of the urine drug screens being unexpected I will decrease the oxycodone to 3 times a day. Will check a definitive urine drug screen in 2 months because the patient says that she recently took a CBD product. in 2 months hopefully will get this out of her system and she was told to discontinue the CBD product. I will proceed with a definitive urine drug screen today because of the absence of gabapentin previously and because the preliminary urine drug screen shows oxycodone and hydrocodone. If it is positive for THC the patient will be given 1 more warning and checked again in 2 months. Will see the patient back in 2 months. Otherwise no changes in her previous condition. 07/16/2024 Other terminologist (current) drug therapy (ICD-10 - Z79.899) July 16, 2024 1. Refill Percocet 7.5/325mg QID - decrease to TID 2. Refill Gabapentin 300mg 2 caps TID 3. Refill Tizanidine 4mg BID 4. F/U 2 months July 16, 2024: Review of history and previous note: Ms. Lynn is a 64-year-old lady with chronic left [...] limitations of management with the opioid analgesics. July 16, 2024: Ms. Hopper is a 64-year-old lady who presents back for follow-up today with continued lower back pain and left shoulder pain that extends to the left bicep. No distal left upper extremity changes or pain. She has no history of surgery on her neck or the shoulder. Her pain level today is 4/10. She has no history of injections or physical therapy. We talked about injection therapy and she refuses. I reviewed the definitive urine drug screen dated March 26, 2024 and it did show THC but she says that she started taking CBD gummy bears. I explained to the patient that she needs to discontinue those because we cannot give opioid therapy with THC. The urine drug screen May 21 showed no gabapentin but it did show oxycodone. She says that she takes gabapentin every day. Because of the urine drug screens being unexpected I will decrease the oxycodone to 3 times a day. Will check a definitive urine drug screen in 2 months because the patient says that she recently took a CBD product. in 2 months hopefully will get this out of her system and she was told to discontinue the CBD product. I will proceed with a definitive urine drug screen today because of the absence of gabapentin previously and because the preliminary urine drug screen shows oxycodone and hydrocodone. If it is positive for THC the patient will be given 1 more warning and checked again in 2 months. Will see the patient back in 2 months. Otherwise no changes in her previous condition. 09/10/2024 Spondylosis without myelopathy or radiculopathy, lumbar region (ICD-10 - M47.816) July 16, 2024: Review of history and previous note: Ms. Lynn is a 64-year-old lady with chronic left [...] Refill Gabapentin 300 mg, 2 capsules TID Refill Tizanidine 4 mg BID Repeat UDS (definitive) today Follow-up in 2 months 09/10/2024 Other custodial (current) drug therapy (ICD-10 - Z79.899) 09/10/2024 1. Refill Percocet 7.5/325mg QID - decrease to TID 2. Refill Gabapentin 300mg 2 caps TID 3. Refill Tizanidine 4mg BID 4. FU PCP depression 5. THC on definitive May and July, no Gabapentin in May on definitive. UA today screen unexpected (+hydro), sent for definitive 6. Declines injections 7.Reviewed Narcotic Agreement policies, specifically stressed a) pain medication from one provider only b) no illegal drug use c) take pain medication as prescribed, follow directions. 8. RTC 2 months and consider consult MD or decrease meds based on definitive. Jasiel (WINDOWS SECURITY ENGINEER-SEAN)Melida 09/12/2024 08:17:36 PM > July 16, 2024: Review of history and previous note: Ms. Lynn is a 64-year-old lady with chronic left [...] THC presence will result in meeting with . The patient was clearly informed of this [...] Refill Gabapentin 300 mg, 2 capsules TID Refill Tizanidine 4 mg BID Repeat UDS (definitive) today Follow-up in 2 months 09/10/2024 Other terminologist (current) drug therapy (ICD-10 - Z79.899) 11/06/2024 Other terminologist (current) drug therapy (ICD-10 - Z79.899) 11/06/2024 [...] Review of history and previous note: Ms. Lynn is a 64-year-old lady with chronic left [...] ongoing. Opioid risk assessment remains moderate. 11/06/2024 Other terminologist (current) drug therapy (ICD-10 - Z79.899) 05/21/2024 Spondylosis without myelopathy or radiculopathy, lumbar region (ICD-10 - M47.816) 05/21/2024 Ms. Lynn returns today for an office visit and medication refill. She denies any change in the character [...] limitations of management with the opioid analgesics. Meds refilled and f/u 2 months. 05/21/2024 Other custodial (current) drug therapy (ICD-10 - Z79.899) 05/21/2024 1. Refill Percocet 7.5/325mg QID 2. Refill Gabapentin 300mg 2 caps TID 3. Refill Tizanidine 4mg BID 4. Consider ITP pump - declines 5. Consider lumbar facet work up/TFESI 6. F/U 2 months 05/21/2024 Ms. Lynn returns today for an office visit and medication refill. She denies any change in the character [...] limitations of management with the opioid analgesics. Meds refilled and f/u 2 months. 03/26/2024 Other terminologist (current) drug therapy (ICD-10 - Z79.899) 03/26/2024 Spondylosis without myelopathy or radiculopathy, lumbar region (ICD-10 - M47.816) 03/26/2024 Ms. Lynn returns today for an office visit and medication refill. She denies any change in the character or intensity of her pain but does note that she is having incfeased pain in her b/l shoulders and in the associated musculature. She reports pain 3-4/10 in her low back. She describes this as aching, burning and sharp. She reports that she is going to schedule an appt with [facility]th[facility] for her left shoulder pain. I have asked if she would like to change muscle relaxants but she is happy with the tizanidine. Currently she is taking Percocet 7.5/325 1 p.o. 4 times daily. She denies any adverse side effects from her medications. [place] and UDS were reviewed today and UDS. Opioid risk assessment is moderate. We did review the limitations of management with the opioid analgesics. Meds refilled and f/u 2 months. 03/26/2024 Other terminologist (current) drug therapy (ICD-10 - Z79.899) 03/26/24 1. Refill Percocet 7.5/325mg QID 2. Refill Gabapentin 300mg 2 caps TID 3. Refill Tizanidine 4mg BID 4. Consider ITP pump - declines as of 01/29/24 5. Consider lumbar facet work up/TFESI 6. F/U 2 months 03/26/2024 Ms. Lynn returns today for an office visit and medication refill. She denies any change in the character or intensity of her pain but does note that she is having incfeased pain in her b/l shoulders and in the associated musculature. She reports pain 3-4/10 in her low back. She describes this as aching, burning and sharp. She reports that she is going to schedule an appt with [facility]th[facility] for her left shoulder pain. I have asked if she would like to change muscle relaxants but she is happy with the tizanidine. Currently she is taking Percocet 7.5/325 1 p.o. 4 times daily. She denies any adverse side effects from her medications. [place] and UDS were reviewed today and UDS. Opioid risk assessment is moderate. We did review the limitations of management with the opioid analgesics. Meds refilled and f/u 2 months. 01/31/2024 Other terminologist (current) drug therapy (ICD-10 - Z79.899) 01/31/2024 Other custodial (current) drug therapy (ICD-10 - Z79.899) 01/29/2024 Spondylosis without myelopathy or radiculopathy, lumbar region (ICD-10 - M47.816) 08/16/2023 Ms. Lynn returns today for an office visit and medication refill. She denies any change in the character or intensity of her pain but does note that she is having incfeased pain in her b/l shoulders and in the associated musculature. I have asked if she would like to change muscle relaxants but she is happy with the tizanidine. She has relied on medication management alone for treatment of the cervical and lumbar spondylosis. Currently she is taking Percocet 7.5/325 1 p.o. 4 times daily. She denies any adverse side effects from her medications. [place] and UDS were reviewed today and UDS is positive for hydrocodone and Oxy and has been sent for LCMS. Opioid risk assessment is moderate. We did review the limitations of management with the opioid analgesics. She states that she is once again actively trying to lose weight. And is hopeful if successful that that we will allow her to modulate her use of the pain medication. [id number] - Patient indicates doing well with her current treatment. She is able to work with her current analgesic regimen. She is doing her HEP and relies on a single pole cane for ambulation. She is working on losing weight and has lost 10 lbs. Most recent UDS and [place] reviewed. No reported side effects with his medications. Will continue with her current analgesic regimen. She is not interested in lumbar injection treatment. She is to continue with her HEP and follow up in 2 months. 01/29/2024 Other custodial (current) drug therapy (ICD-10 - Z79.899) 01/29/2024 1. Refill Percocet 7.5/325mg QID -ERX 2. Refill Gabapentin 300mg 2 caps TID - ERX 3. Refill Tizanidine 4mg BID - ERX sent 4. Consider ITP pump - declines as of 01/29/24 5. Consider lumbar facet work up/TFESI 6. F/U 2 months 08/16/2023 Ms. Lynn returns today for an office visit and medication refill. She denies any change in the character or intensity of her pain but does note that she is having incfeased pain in her b/l shoulders and in the associated musculature. I have asked if she would like to change muscle relaxants but she is happy with the tizanidine. She has relied on medication management alone for treatment of the cervical and lumbar spondylosis. Currently she is taking Percocet 7.5/325 1 p.o. 4 times daily. She denies any adverse side effects from her medications. [place] and UDS were reviewed today and UDS is positive for hydrocodone and Oxy and has been sent for LCMS. Opioid risk assessment is moderate. We did review the limitations of management with the opioid analgesics. She states that she is once again actively trying to lose weight. And is hopeful if successful that that we will allow her to modulate her use of the pain medication. [id number] - Patient indicates doing well with her current treatment. She is able to work with her current analgesic regimen. She is doing her HEP and relies on a single pole cane for ambulation. She is working on losing weight and has lost 10 lbs. Most recent UDS and [place] reviewed. No reported side effects with his medications. Will continue with her current analgesic regimen. She is not interested in lumbar injection treatment. She is to continue with her HEP and follow up in 2 months. 11/06/2024 Spondylosis without myelopathy or radiculopathy, lumbar region (ICD-10 - M47.816) July 16, 2024: Review of history and previous note: Ms. Lynn is a 64-year-old lady with chronic left [...] risk assessment remains moderate. Plan Of Treatment Pending Test Test Name Order Date Urine Test LCMS Definitive 07/16/2024 Urine Test LCMS Definitive 09/10/2024 Next Appt Details Provider Name:Dale benito, 01/01/2025 10:15:00 AM, [address], [address], [place], [address], Medical (General) History Medical History History ICD Code hypertension diagnosed in 2009, managed by Dr. Ruthy Harman hiatal hernia diagnosed in 1999, managed by Dr. Ruthy Harman reflux diagnosed in 1999, managed by Dr. Ruthy Harman Surgical History Surgery Date(Month/Year) cholecystectomy / Hospital / [address] [facility] 1991 appendectomy / [facility] / Dr Jace Addison / 7 day stay 1970 bariatic surgery / Hospital / 6 day [facility] 1989 Left THR / [facility]/ Dr. Brown 2 Hospitalization History Reason Date(Month/Year)
--- OUTSIDE RECORDS SUMMARY | 2024-12-17 15:12 | XMS_ITS | Clinical Summary ---
Author Organization [facility] Address [address] [place] [address] Care Team Providers Care Staff Sonographer Name Role Phone Provider, No Known Primary Care Provider [phone] Allergies No known active allergies Medications HYDROcodone-andi taminophen (NORCO) 7.5-325 MG per tablet Take 1 tablet by mouth Every 6 (Six) Hours As Needed for moderate pain (4-6). Active gabapentin (NEURONTIN) 600 MG tablet Take 600 mg by mouth. Active omeprazole (priLOSEC) 20 MG capsule Take 20 mg by mouth Daily. Active celecoxib (CeleBREX) 100 MG capsule TAKE 1 CAPSULE BY MOUTH EVERY DAY --TAKE WITH FOOD-- 3 9 Active gabapentin (NEURONTIN) 300 MG capsule TAKE 1 CAPSULE BY MOUTH SIX TIMES A DAY MAY CAUSE DROWSINESS 1 9 Active tiZANidine (ZANAFLEX) 4 MG tablet TAKE 1 TABLET BY MOUTH TWICE DAILY NEEDED MAY CAUSE DROWSINESS 1 9 Active HYDROcodone-andi taminophen (NORCO) 10-325 MG per tablet TAKE 1 TABLET BY MOUTH EVERY 6 HOURS NEEDED MAY CAUSE DROWSINESS 0 9 Active Active Problems No known active problems Immunizations Immunization Administration Dates Next Due Fluzone (or Fluarix & Flulaval for VFC) >6mos PPD Test 02/25/2019,02/27/2018 Family History Medical History Relation Name Comments Diabetes Father Heart disease Father Obesity Father Cancer Mother Stroke Mother Relation Name Status Comments Father Mother Social History Tobacco Use Types Packs/Day Years Used Date Smoking Tobacco: Every Day Cigarettes Tobacco Cessation:Ready to Q uit: No; Counseling Given: No Abuse Screen Answer Date Recorded Unsafe at Home or Work/School Not on file Feels Threatened by Someone? Not on file 03/2023 Does Anyone Keep You from Co ntacting Others or Doint Things Outside the Home? Not on file 02/15/2023 Physical Sign of Abuse Present Not on file 1 Housing Stability Answer Date Recorded Current Living Arrangements Not on file 02/05 Potentially Unsafe Housing Conditions Not on kenan e 02/15/2023 Family and Community Support Answer Armani e Recorded Help with Day-to-Day Activities Not on file 02/15/2023 Lonely or Isolated Not on file 02/15/2023 Employment Answer Date Recorded Do you want help finding or keeping work or a eduar b? Not on file 02/15/2023 Disabilities Answer Date Recorded Concentrating, Remembering, or Making Decisions Difficulty Not on file 02/15/2023 Doing Errands Independently Difficulty Not on fi le 02/15/2023 Education Answer Date Recorded Help with school or training? Not on file Preferred Language Not on file 02/15/2023 Comments No Sex and Gender Information Value Date Recorded Sex Assigned at Not on file Legal Sex Female 2:39 PM EST Gender Identity Not on file Sexual Orientation Not on file Last Filed Vital Signs Vital Sign Reading Time Taken Comments Blood Pressure - - Pulse 79 06/06/2016 2:55 PM EST Temperature 36.7 C (98 F) 06/06/2016 2:55 PM EST Respiratory Rate 18 06/06/2016 2:55 PM EST Oxygen Saturation 98% 06/06/2016 2:55 PM EST Inhaled Oxygen Concentration - - Weight 135 kg (298 lb 3.2 oz) 06/06/2016 2:55 PM EST Height 166.4 cm (5' 5.5 ) 06/06/2016 2:55 PM EST Body Mass Index 48.87 06/06/2016 2:55 PM EST Plan of Treatment Health Maintenance Due Date Last Done Comments Annual Gynecologic Pelvic and Breast Exam 1960 TDAP/TD VACCINES (1 - Tdap) 02/22/1979 MAMMOGRAM 2000 COLOGUARD 02/22/2005 COLON CANCER SCREENING 5 YEAR SIGMOIDOSCOPY 02/22/2005 COLONOSCOPY 02/22/2005 COLORECTAL CANCER SCREENING 02/22/2005 CT COLONOGRAPHY 02/22/2005 FECAL OCCULT BLOOD TEST 02/22/2005 FIT Testing (1 year) 02/22/2005 Pneumococcal Vaccine 50+ (1 of 1 - PCV) 02/22/2010 ZOSTER VACCINE (1 of 2) 02/22/2010 ANNUAL PHYSICAL 02/27/2018 HEPATITIS C SCREENING 02/27/2018 COVID-19 Vaccine (2023- season) 2024 INFLUENZA VACCINE 02/05/2025 02/25/2019 Insurance PPO Care Teams Staff Sonographer Relationship Specialty Start Date End Date Provider, [place] [address] PCP - General 06/06/16
== END 2024-12-17 23:59 | disposition home or self-care (01) ==
LOC: RAD 15:07
PROVIDERS: Visit Provider Orthopaedic Surgery Adult Reconstructive Orthopaedic Surgery
DX: M47.26 Other spondylosis with radiculopathy, lumbar region (principal)
CPT/HCPCS: 72148

== ENCOUNTER 2025-02-05 16:49 | Outpatient (CLI) | payer MEDICARE, SELFPAY ==
--- OUTSIDE RECORDS SUMMARY | 2025-02-05 16:51 | XMS_ITS | Clinical Summary ---
Author Organization [facility] Address [address] [place] [address] Care Team Providers Care Retail Marketing Coordinator Name Role Phone Provider, No Known Primary Care Provider [phone] Allergies No known active allergies Medications HYDROcodone-andi [...] ANNUAL PHYSICAL 02/27/2018 HEPATITIS C SCREENING 02/27/2018 INFLUENZA VACCINE 12/06/2024 02/25/2019 Insurance PPO Member Subscriber Plan / Payer (Ef fective 2015-Present) Name:Carmita Lynn Relation to Subscriber:Self Name:Carmita Lynn Payer ID:[id number] (NAIC) Type:Not on file Address: [facility] [id number] [place] [id number] Care Teams Retail Marketing Coordinator Relationship Specialty Start Date End Date Provider, [place] [address] PCP - General 06/06/16
== END 2025-02-05 23:59 | disposition home or self-care (01) ==
LOC: RAD 16:50
PROVIDERS: Visit Provider Physician Assistant
DX: M25.511 Pain in right shoulder (principal); M25.512 Pain in left shoulder

== ENCOUNTER 2025-02-05 17:02 | Outpatient (CLI) | payer MEDICARE, SELFPAY ==
--- NOTE | 2025-02-05 | XR_ITS ---
PROCEDURE INFORMATION: Exam: XR Right Shoulder Exam date and time: 02/05/2025 5:11 PM Age: 64 years old Clinical indication: Pain; Shoulder; Right TECHNIQUE: Imaging protocol: Radiologic exam of the right shoulder. Views: 2 or more views. COMPARISON: No relevant prior studies available. FINDINGS: Bones/joints: No acute fracture. Moderate degenerative changes of acromioclavicular joint. No dislocation. Soft tissues: Unremarkable. IMPRESSION: No fracture. If pain persists, consider MRI for further evaluation.
--- NOTE | 2025-02-05 | XR_ITS ---
PROCEDURE INFORMATION: Exam: XR Left Shoulder Exam date and time: 02/05/2025 5:17 PM Age: 64 years old Clinical indication: Pain; Shoulder; Left TECHNIQUE: Imaging protocol: Radiologic exam of the left shoulder. Views: 2 or more views. COMPARISON: No relevant prior studies available. FINDINGS: Bones/joints: No acute fracture. Moderate degenerative changes of acromioclavicular joint. No dislocation. Soft tissues: Unremarkable. IMPRESSION: No fracture. If pain persists, consider MRI for further evaluation.
== END 2025-02-05 23:59 | disposition home or self-care (01) ==
LOC: RAD 17:04
PROVIDERS: PCP Physician Assistant; Visit Provider Physician Assistant
DX: M25.511 Pain in right shoulder (principal); M25.512 Pain in left shoulder
CPT/HCPCS: 73030

== ENCOUNTER 2025-02-27 12:51 | Outpatient (CLI) | payer MEDICARE, SELFPAY ==
--- NOTE | 2025-02-27 12:55 | MR_ITS ---
FINAL REPORT TECHNIQUE: Multiplanar MR without contrast CLINICAL HISTORY: CERVICALGIA chronic neck pain radiated into left shoulder FINDINGS: Limited images of the posterior fossa are unremarkable. Alignment is normal. Cervical spinal cord shows normal signal and contour. C2-3: Unremarkable C3-4: Minimal annular disc bulge and mild facet arthropathy. C4-5: Moderate annular disc bulge and facet overgrowth. Mild central canal stenosis. Moderate right and severe left neuroforaminal narrowing. C5-6: Moderate annular disc bulge, asymmetric to the right. Moderate central canal stenosis and moderate to severe bilateral neuroforaminal narrowing. C6-7: Mild annular disc bulge and mild bilateral neuroforaminal narrowing. C7-T1: Annular disc bulge and mild to neuroforaminal narrowing. IMPRESSION: Degenerative changes, most pronounced at C4-5 and C5-6. Reviewed, Interpreted and Dictated by Carlos Jacob MD Transcribed by Adrienne Wilson Authenticated and [facility]
--- OUTSIDE RECORDS SUMMARY | 2025-02-27 12:58 | XMS_ITS | Clinical Summary ---
Author Organization [facility] Address [address] [place] [address] Care Team Providers Care Parent Trainer Name Role Phone Provider, No Known Primary Care Provider [phone] Allergies No known active allergies Medications HYDROcodone-andi [...] Payer ID:[id number] (NAIC) Type:Not on file Address: [facility] [id number] [place] [phone] Care Teams Parent Trainer Relationship Specialty Start Date End Date Provider, [place] [address] PCP - General 06/06/16
== END 2025-02-27 23:59 | disposition home or self-care (01) ==
LOC: RAD 12:52
PROVIDERS: PCP Physician Assistant; Visit Provider Physician Assistant
DX: M47.812 Spondylosis without myelopathy or radiculopathy, cervical region (principal)
CPT/HCPCS: 72141

== ENCOUNTER 2025-04-08 13:00 | Outpatient (CLI) | payer MEDICARE, SELFPAY ==
--- NOTE | 2025-04-08 13:00 | CA_ITS ---
APPROVED REPORT EXAM: Comprehensive 2D, Doppler, and color-flow Echocardiogram Photographer Apprentice: GLORIA Stubbs, RVS Ht: 5 ft 5 in Wt: 268lbs BSA: 2.24 BP: 141/99 mmHg Indications: SOB, Edema, Smoker, HTN, CAD 2D Dimensions IVSd 1.01 cm F: 0.6-1.0 LVEF (Visual) 56.10 % PWd 0.94 cm F: 0.6 - 1.0 LA Volume 41.10 mL LVDd 4.46 cm F: 3.9 - 5.3 LA Volume Index [id number] mL/m2 (M/F) 16-34 LVDs 3.16 cm F: 2.2 - 3.5 Left Atrium 2.92 cm F: 2.7 - 3.8 M-Mode Dimensions LA Diam 4.14 cm (1.9-4.0) EPSs 0.84 cm TAPSE 2.30 (<1.7) LV Diastology E Decel Time 297 (160-240 msec) E/A Ratio 0.92 MED A' 10.20 cm/s LAT A' 12.10 cm/s Aortic Valve KAMI Index 0.80 cm2/m2 AoV Peak Jem. 187.0 (50-130 cm/s) AO Peak GR. 14.10 mmHg AO Mean GR. 6.90 (<5 mmHg) AO VTI 33.6 (18-25 cm) KAMI (VTI) 1.84 (2.5-4.5 cm2) Mitral Valve MV A Velocity 75.0 (40-130 cm/s) E/A Ratio 0.92 Pulmonary Valve PV Peak Velocity 102.0 (50-150 cm/s) Tricuspid Valve TR P. Velocity 232.00 cm/s RAP Estimate 10.00 mmHg RVSP 31.50 mmHg Left Ventricle The left ventricle is normal size. Left ventricular systolic function is normal. The left ventricular ejection fraction is within the normal range. There is increased left ventricular wall thickness. There is normal LV segmental wall motion. The left ventricular diastolic function is normal. LVEF is 55%. Right Ventricle The right ventricle is normal size. The right ventricular systolic function is normal. Atria The left atrium size is normal. The right atrium size is normal. There is no color Doppler evidence of interatrial shunt. Aortic Valve The aortic valve is mildly thickened. There is no hemodynamically significant aortic valvular stenosis. No aortic regurgitation is present. Mitral Valve The mitral valve is normal in structure. No evidence of mitral valve stenosis. Trace mitral regurgitation is present. Tricuspid Valve The tricuspid valve leaflets are thin and pliable. Mild tricuspid regurgitation. RVSP is 20-25 mmHg. Pulmonic Valve The pulmonary valve is grossly normal in structure. Trace pulmonic valve regurgitation is present. Great Vessels The aortic root is normal in size. IVC is normal in size and collapses >50% with inspiration. Pericardium There is no pericardial effusion. Other Information Study Quality: Fair Conclusion Normal biventricular systolic function. Mild TR. Electronically signed by : Jaylyn Roy MD 04/10/2025 13:06:31
== END 2025-04-08 23:59 | disposition home or self-care (01) ==
LOC: RT 13:01
PROVIDERS: PCP Physician Assistant; Visit Provider Physician Assistant
DX: I08.1 Rheumatic disorders of both mitral and tricuspid valves (principal); I11.9 Hypertensive heart disease without heart failure; I25.10 Atherosclerotic heart disease of native coronary artery without angina pectoris; F17.200 Nicotine dependence, unspecified, uncomplicated
CPT/HCPCS: 93306